=== PATIENT | female | born 1965 | race American Indian/Alaskan Native ===

== ENCOUNTER 2017-02-18 16:20 | Emergency (ER) | payer MEDICAID, OTHER ==
[2017-02-18 16:21] VITALS: BMI 39.9
[2017-02-18 16:45] VITALS: RESP 18; TEMP 99
--- NOTE | 2017-02-18 17:08 | ED PDOC ---
"Arrival/HPI - General Chief Complaint: High Blood Pressure Time Seen by Provider: 02/18/17 16:56 Historian: Patient - History of Present Illness Narrative History of Present Illness (Text): 02/18/17 16:59 51 year old female, pmh including hypertension/hyperlipidemia/diabetes/ mastoiditis, post menopausal, nkda, complaining of elevation of the blood pressure at home and headache x 1 day. Pt. stated that she has been on the current dose of enlapril 20mg po qd and toprol XL 25mg po qd for the past 4 years, poorly controlled Diabetes patient with last hgba1c 11 which she is on oral metformin and insulin as well. Pt. stated that she has frontal headache for the past 2 days, checked the BP which it has been above her usual systolic 130-140s/diastolic doesn't know, here to the ER for evaluation. Pt. has no chest pain or shortness of breath, no palpitation, no numbness or tingling, no slurred speech, no dizziness, no change in vision, no abdominal pain, no nausea or vomiting, no other medical or psychological complaints. Past Medical History - Provider Review Nursing Documentation Reviewed: Yes - Infectious Disease Hx of Infectious Diseases: None - Reproductive Menopause: Yes - Cardiac Hx Cardiac Disorders: Yes Hx Hypertension: Yes - Pulmonary Hx Respiratory Disorders: No - Neurological Hx Neurological Disorder: No - HEENT Hx HEENT Disorder: No - Renal Hx Renal Disorder: No - Endocrine/Metabolic Hx Endocrine Disorders: Yes Hx Diabetes Mellitus Type 2: Yes - Hematological/Oncological Hx Blood Disorders: Yes Hx Anemia: Yes - Integumentary Hx Dermatological Disorder: No - Musculoskeletal/Rheumatological Hx Musculoskeletal Disorders: Yes Other/Comment: Bursitis - Gastrointestinal Hx Gastrointestinal Disorders: Yes Other/Comment: Gallstones. Hernia - Genitourinary/Gynecological Hx Genitourinary Disorders: No Other/Comment: fibroid - Psychiatric Hx Psychophysiologic Disorder: No Hx Substance Use: No - Surgical History Hx Section: Yes Hx Cholecystectomy: Yes Other/Comment: fibroid sx - Anesthesia Hx Anesthesia: Yes Hx Anesthesia Reactions: No Hx Malignant Hyperthermia: No Family/Social History - Physician Review Nursing Documentation Reviewed: Yes Family/Social History: Unknown Family HX Smoking Status: Never Smoked Hx Alcohol Use: No Hx Substance Use: No Allergies/Home Meds Allergies/Adverse Reactions: Allergies No Known Allergies Allergy (Verified 02/18/17 16:39) Home Medications: Home Meds Medication Instructions Recorded Confirmed Aspirin [Aspirin Chewable] 81 mg PO DAILY 08/19/16 02/18/17 Enalapril Maleate [Vasotec] 20 mg PO BID 08/19/16 02/18/17 Metoprolol Succinate [Toprol XL] 25 mg PO DAILY 08/19/16 02/18/17 Simvastatin [Zocor] 20 mg PO DAILY 08/19/16 02/18/17 metFORMIN [glucOPHAGE] 500 mg PO BID 08/19/16 02/18/17 Insulin Lispro Mix 75/25 [HumaLOG 50 unit SC BID 02/18/17 02/18/17 Mix 75/25] Review of Systems - Review of Systems Constitutional: absent: Fatigue, Fevers Eyes: absent: Vision Changes ENT: absent: Hearing Changes Respiratory: absent: Cough, Sputum Cardiovascular: absent: Chest Pain Gastrointestinal: absent: Abdominal Pain, Diarrhea, Nausea, Vomiting Genitourinary Female: absent: Vaginal Bleeding Musculoskeletal: absent: Arthralgias, Back Pain, Neck Pain Skin: absent: Rash, Pruritis, Skin Lesions Neurological: Headache. absent: Dizziness, Focal Weakness, Gait Changes, Speech Changes Physical Exam Vital Signs Reviewed: Yes Vital Signs Temp Pulse Resp BP Pulse Ox 02/18/17 18:53 70 18 150/86 99 02/18/17 18:22 75 18 179/102 H 99 02/18/17 17:45 73 17 209/114 H 98 02/18/17 16:44 99.0 F 77 18 180/100 H 98 Temperature: Afebrile Blood Pressure: Hypertensive Pulse: Regular Respiratory Rate: Normal Appearance: Positive for: Well-Appearing, Non-Toxic, Comfortable Pain Distress: Mild Mental Status: Positive for: Alert and Oriented X 3 - Systems Exam Head: Present: Atraumatic, Normocephalic Pupils: Present: PERRL, Other (there is no papilledema) Extroacular Muscles: Present: EOMI Conjunctiva: Present: Normal Mouth: Present: Moist Mucous Membranes Neck: Present: Normal Range of Motion Respiratory/Chest: Present: Clear to Auscultation, Good Air Exchange. No: Respiratory Distress, Accessory Muscle Use Cardiovascular: Present: Regular Rate and Rhythm, Normal S1, S2. No: Murmurs Abdomen: Present: Normal Bowel Sounds. No: Tenderness, Distention, Peritoneal Signs Back: Present: Normal Inspection Upper Extremity: Present: Normal Inspection. No: Cyanosis, Edema Lower Extremity: Present: Normal Inspection. No: Edema Neurological: Present: GCS=15, Speech Normal, Motor Func Grossly Intact, Gait Normal, Memory Normal, Other (no drift, walking with normal gait and posture. ) Skin: Present: Warm, Dry, Normal Color. No: Rashes Psychiatric: Present: Alert, Oriented x 3, Normal Insight, Normal Concentration Medical Decision Making ED Course and Treatment: 02/18/17 17:20 -labs -CT head -I asked the patient to take her enalapril and metoprolol in the ER again, tylenol ordered.` -Observe and reassess 02/18/17 19:13 -CT head show no acute findings. -Labs are non-significant. -BP improved, no headache, asymptomatic, discussed with the patient that the medication needs to be adjusted. -Discharge home with education on follow up with your own pmd within 2 days, return to the ER for any new or worsening signs or symptoms. - Lab Interpretations Lab Results: 02/18/17 17:15 02/18/17 17:15 Lab Results 02/18/17 17:15: Sodium 140, Potassium 4.7, Chloride 100, Carbon Dioxide 32, Anion Gap 13, BUN 10, Creatinine 0.5, Est GFR ( Amer) > 60, Est GFR (Non- Af Amer) > 60, Random Glucose 200 H, Calcium 10.2, Total Bilirubin 0.6, AST 26, ALT 38, Alkaline Phosphatase 145 H, Total Protein 8.4 H, Albumin 4.4, Globulin 4.0, Albumin/Globulin Ratio 1.1 02/18/17 17:15: WBC 6.7, RBC 4.54, Hgb 13.9, Hct 40.4, MCV 89.0, MCH 30.6, MCHC 34.4, RDW 12.8, Plt Count 365, MPV 10.0, Gran % 52.4, Lymph % (Auto) 38.9 H, Cook % (Auto) 6.6 H, Eos % (Auto) 1.8, Baso % (Auto) 0.3, Gran # 3.50, Lymph # 2.6, Cook # 0.4, Eos # 0.1, Baso # 0.02 I have reviewed the lab results: Yes Interpretation: Abnormal lab values (Glucose 200) - RAD Interpretation Radiology Orders: 02/18/17 17:08 HEAD W/O CONTRAST [CT] Stat FINDINGS: Scattered foci of low attenuation within the periventricular and subcortical white matter are most compatible with chronic microvascular disease. The ventricles and sulci are symmetric without midline shift or mass effect. There is no intracranial hemorrhage, extraaxial collection, or acute transcortical infarction. No lesion of the skull base or calvarium is identified. Mild right ethmoid sinusitis. The remainder of the visualized paranasal sinuses, mastoid air cells, and orbits are normal. IMPRESSION: Mild chronic microvascular changes without acute intracranial finding. Thank you for allowing us to participate in the care of your patient. LETTY LEWISLY | Preliminary Radiology Report Dictated and Authenticated by: Chelsea Aranda MD 02/18/2017 6:13 PM Eastern Time ([place] & [place]) Game Protector: Radiologist - Medication Orders Current Medication Orders: Discontinued Medications Acetaminophen (Tylenol 325mg Tab) 650 mg PO STAT STA Stop: 02/18/17 17:11 Last Admin: 02/18/17 17:50 Dose: 650 mg - PA / MANUFACTURING SR ENGINEER / Resident Statement MD/DO has reviewed & agrees with the documentation as recorded. Disposition/Present on Arrival - Present on Arrival Any Indicators Present on Arrival: No History of DVT/PE: No History of Uncontrolled Diabetes: Yes Urinary Catheter: No History of Decub. Ulcer: No History Surgical Site Infection Following: None - Disposition Have Diagnosis and Disposition been Completed?: Yes Diagnosis: Hypertension Disposition: HOME/ ROUTINE Disposition Time: 19:14 Patient Plan: Discharge Condition: IMPROVED Additional Instructions: Discharge home with education on follow up with your own pmd within 2 days, return to the ER for any new or worsening signs or symptoms. Referrals: [facility] at [facility] [place] [[place]] - Follow up with primary Forms: [id number] (Swazi)"
[2017-02-18 17:55] LABS: ADD MANUAL DIFF? NO
[2017-02-18 18:22] LABS: ALB/GLOB RATIO 1.1 (1.1-1.8); ALKALINE PHOSPHATASE 145 U/L (38-133); ALT/SGPT 38 U/L (7-56); AST/SGOT 26 U/L (15-39); BILIRUBIN,TOTAL 0.6 mg/dL (0.2-1.3); BLOOD UREA NITROGEN 10 mg/dL (7-21); CALCIUM 10.2 mg/dL (8.4-10.5); CARBON DIOXIDE 32 mmol/L (21-33); CHLORIDE 100 mmol/L (98-107); GFR AFRICAN-AMERICAN > 60; GLUCOSE,RANDOM 200 mg/dL (70-110); POTASSIUM 4.7 mmol/L (3.6-5.0); SODIUM 140 mmol/L (132-148); TOTAL PROTEIN 8.4 g/dL (5.8-8.3)
[2017-02-18 18:25] LABS: BASO # 0.02 K/mm3 (0.0-2.0); BASO % 0.3 % (0.0-3.0); EOS # 0.1 (0.0-0.7); EOS % 1.8 % (1.5-5.0); GRAN % 52.4 % (50.0-68.0); HEMATOCRIT 40.4 % (36.0-48.0); LYMPH # 2.6 (1.2-3.4); LYMPH % 38.9 % (22.0-35.0); MEAN CORPUSCULAR HEMOGLOBIN 30.6 pg (25.0-35.0); MEAN CORPUSCULAR HGB CONC 34.4 g/dl (31.0-37.0); MONO # 0.4 (0.1-0.6); MONO % 6.6 % (1.0-6.0); PLATELET COUNT 365 10^3/uL (120.0-450.0); RED CELL DISTRIBUTION WIDTH 12.8 % (11.5-14.5); WHITE BLOOD COUNT 6.7 10^3/ul (4.5-11.0)
[2017-02-18 19:17] VITALS: BP 150/86; PULSE 70; O2SAT 99
--- NOTE | 2017-02-19 08:20 | CT ---
PROCEDURE: CT HEAD WITHOUT CONTRAST. HISTORY: elevated BP, headache COMPARISON: None available. TECHNIQUE: Axial computed tomography images were obtained through the head/brain without intravenous contrast. Radiation dose: Total exam DLP = 725.84 mGy-cm. This CT exam was performed using one or more of the following dose reduction techniques: Automated exposure control, adjustment of the mA and/or kV according to patient size, and/or use of iterative reconstruction technique. FINDINGS: HEMORRHAGE: No intracranial hemorrhage. BRAIN: No mass effect or edema. No CT evidence of acute territorial infarct. Very mild patchy and confluent hypodensities throughout the bilateral cerebral hemispheric white matter are most likely from chronic small vessel ischemic changes. VENTRICLES: Unremarkable. No hydrocephalus. CALVARIUM: Unremarkable. PARANASAL SINUSES: Mucosal thickening involving the ethmoid sinus. MASTOID AIR CELLS: Unremarkable as visualized. No inflammatory changes. OTHER FINDINGS: None. IMPRESSION: No CT evidence of acute intracranial hemorrhage or acute territorial infarct. Acute infarction may be CT occult within first 24 hours. If a focal deficit persists, consider followup CT or MRI for further evaluation. Findings as above. Please note that this report is in general agreement with the preliminary report provided by [employer].
== END 2017-02-18 19:22 | disposition home or self-care (01) ==
LOC: ED 16:20
DX: I10 Essential (primary) hypertension (principal); E78.5 Hyperlipidemia, unspecified; E11.9 Type 2 diabetes mellitus without complications

== ENCOUNTER 2017-10-22 16:44 | Observation (INO) | payer MEDICAID ==
[2017-10-22 17:03] VITALS: BMI 38.0
[2017-10-22] MEDS ORDERED: Sodium Chloride 0.9% 1,000 ML IV STA (17:12)
--- NOTE | 2017-10-22 17:15 | ED PDOC ---
Arrival/HPI - General Chief Complaint: GI Problem Time Seen by Provider: 10/22/17 17:01 Historian: Patient, Family (Niece) - History of Present Illness Time/Duration: Other (Yesterday) Symptom Onset: Gradual Symptom Course: Unchanged Severity Level: Moderate Activities at Onset: Rest Associated Symptoms (Text): 10/22/17 17:13 Patient complains of generalized crampy abdominal pain along with nausea vomiting and diarrhea beginning sometime yesterday. She had a similar episode approximately 2 months ago and had a negative CAT scan at that time. Feverish with some chills. No travel or exposure. No genitourinary symptoms. No cough congestion or URI. No chest pain palpitations or dyspnea. No headache dizziness or lightheadedness. Past Medical History - Infectious Disease Hx of Infectious Diseases: None - Reproductive Menopause: Yes - Cardiac Hx Cardiac Disorders: Yes Hx AL: Yes Hx Hypertension: Yes - Pulmonary Hx Respiratory Disorders: No - Neurological Hx Neurological Disorder: No - HEENT Hx HEENT Disorder: No - Renal Hx Renal Disorder: No - Endocrine/Metabolic Hx Endocrine Disorders: Yes Hx Diabetes Mellitus Type 2: Yes - Hematological/Oncological Hx Blood Disorders: Yes Hx Anemia: Yes - Integumentary Hx Dermatological Disorder: No - Musculoskeletal/Rheumatological Hx Musculoskeletal Disorders: Yes Other/Comment: Bursitis - Gastrointestinal Hx Gastrointestinal Disorders: Yes Other/Comment: Gallstones. Hernia - Genitourinary/Gynecological Hx Genitourinary Disorders: No Other/Comment: fibroid - Psychiatric Hx Psychophysiologic Disorder: No Hx Substance Use: No - Surgical History Hx Section: Yes Hx Cholecystectomy: Yes Other/Comment: fibroid sx - Anesthesia Hx Anesthesia: Yes Hx Anesthesia Reactions: No Hx Malignant Hyperthermia: No Family/Social History - Physician Review Nursing Documentation Reviewed: Yes Family/Social History: Unknown Family HX Smoking Status: Never Smoked Hx Alcohol Use: No Hx Substance Use: No Allergies/Home Meds Allergies/Adverse Reactions: Allergies No Known Allergies Allergy (Verified 10/22/17 17:03) Home Medications: Home Meds Medication Instructions Recorded Confirmed Enalapril Maleate [Vasotec] 20 mg PO BID 08/19/16 10/22/17 Metoprolol Succinate [Toprol XL] 25 mg PO DAILY 08/19/16 10/22/17 Simvastatin [Zocor] 20 mg PO DAILY 08/19/16 10/22/17 metFORMIN [glucOPHAGE] 500 mg PO BID 08/19/16 10/22/17 Insulin Lispro Mix 75/25 [HumaLOG 50 unit SC BID 02/18/17 10/22/17 Mix 75/25] Review of Systems - Physician Review All systems were reviewed & negative as marked: Yes - Review of Systems Constitutional: Fevers Respiratory: absent: SOB, Cough, Sputum, Wheezing Cardiovascular: absent: Chest Pain, Palpitations, Syncope Gastrointestinal: Abdominal Pain, Diarrhea, Nausea, Vomiting, Anorexia. absent : Constipation Genitourinary Female: absent: Dysuria, Frequency, Hematuria Neurological: absent: Headache, Dizziness, Focal Weakness Physical Exam Vital Signs Temp Pulse Resp BP Pulse Ox 10/22/17 16:57 100.7 F H 108 H 18 165/99 H 96 Temperature: Febrile Blood Pressure: Hypertensive Pulse: Tachycardic Respiratory Rate: Normal Appearance: Positive for: Well-Appearing, Non-Toxic, Uncomfortable Pain Distress: None Mental Status: Positive for: Alert and Oriented X 3 - Systems Exam Head: Present: Atraumatic, Normocephalic Pupils: Present: PERRL Extroacular Muscles: Present: EOMI Conjunctiva: Present: Normal Mouth: Present: Moist Mucous Membranes, Other (Poor dentition) Pharnyx: No: ERYTHEMA, EXUDATE, TONSILS ENLARGED Neck: Present: Normal Range of Motion Respiratory/Chest: Present: Clear to Auscultation, Good Air Exchange. No: Respiratory Distress, Accessory Muscle Use Cardiovascular: Present: Regular Rate and Rhythm, Normal S1, S2. No: Murmurs Abdomen: Present: Normal Bowel Sounds, Scars. No: Tenderness, Distention, Peritoneal Signs, Rebound, Guarding Back: Present: Normal Inspection Upper Extremity: Present: Normal Inspection. No: Cyanosis, Edema Lower Extremity: Present: Normal Inspection. No: Edema Neurological: Present: GCS=15, CN II-XII Intact, Speech Normal, Motor Func Grossly Intact Skin: Present: Warm, Dry, Normal Color. No: Rashes Psychiatric: Present: Alert, Oriented x 3, Normal Insight, Normal Concentration Medical Decision Making ED Course and Treatment: 10/22/17 18:53 Dr. Sampson referred to the hospitalist for admission. - Lab Interpretations Lab Results: 10/22/17 17:30 10/22/17 17:30 Lab Results 10/22/17 17:30: Sodium 139, Potassium 4.1, Chloride 100, Carbon Dioxide 27, Anion Gap 17, BUN 11, Creatinine 0.6 L, Est GFR ( Amer) > 60, Est GFR ( Non-Af Amer) > 60, Random Glucose 362 H* D, Calcium 9.6, Total Bilirubin 0.7, AST 30, ALT 45, Alkaline Phosphatase 155 H, Total Protein 8.2, Albumin 4.5, Globulin 3.7, Albumin/Globulin Ratio 1.2, Lipase 31 10/22/17 17:30: Urine Color Yellow, Urine Appearance Sl cloudy, Urine pH 6.0, Ur Specific [place] >= 1.030, Urine Protein 100 H, Urine Glucose (UA) >=1000, Urine Ketones 40 H, Urine Blood Trace-lysed H, Urine Nitrate Negative, Urine Bilirubin Negative, Urine Urobilinogen 0.2, Ur Leukocyte Esterase Negative, Urine RBC 2 - 5, Urine WBC 2 - 5, Ur Epithelial Cells 4 - 5, Urine Bacteria Many , Urine Other Mucus 10/22/17 17:30: WBC 8.5, RBC 4.85, Hgb 14.8, Hct 43.4, MCV 89.5, MCH 30.5, MCHC 34.1, RDW 12.7, Plt Count 327, MPV 10.4, Gran % 91.4 H, Lymph % (Auto) 5.5 L, Door % (Auto) 2.9, Eos % (Auto) 0.1 L, Baso % (Auto) 0.1, Gran # 7.78 H, Lymph # 0.5 L, Door # 0.3, Eos # 0.0, Baso # 0.01, Neutrophils % (Manual) 73 H, Band Neutrophils % 9 H, Lymphocytes % (Manual) 9 L, Monocytes % (Manual) 6, Eosinophils % (Manual) 3, Platelet Evaluation Normal - Medication Orders Current Medication Orders: Sodium Chloride (Sodium Chloride 0.9%) 1,000 mls @ 500 mls/hr IV ONCE ONE Stop: 10/22/17 22:18 Discontinued Medications Famotidine (Pepcid) 20 mg IVP STAT STA Stop: 10/22/17 17:13 Last Admin: 10/22/17 17:40 Dose: 20 mg IVP Administration Document 10/22/17 17:40 SRE (Rec: 10/22/17 17:40 [email or web address] Charges for Administration # of IVP Administrations 1 Sodium Chloride (Sodium Chloride 0.9%) 1,000 mls @ 1,000 mls/hr IV .Q1H STA Stop: 10/22/17 18:11 Last Admin: 10/22/17 17:36 Dose: 1,000 mls/hr eMAR Start Stop Document 10/22/17 17:36 SRE (Rec: 10/22/17 17:40 [email or web address] Intravenous Solution Start Date 10/22/17 Start Time 17:39 End Date 10/22/17 End time 18:40 Total Infusion Time 61 Insulin Human Regular (Humulin R) 20 units SC ONCE STA Stop: 10/22/17 18:10 Last Admin: 10/22/17 18:32 Dose: 20 units MAR Blood Glucose Document 10/22/17 18:32 SRE (Rec: 10/22/17 18:33 [email or web address] Blood Glucose Finger Stick Blood Glucose (70-120) 368 Subcutaneous Administrations Document 10/22/17 18:32 SRE (Rec: 10/22/17 18:33 [email or web address] Injection Site MAR Injection Site Left Arm Charges for Administration # of Subcutaneous Administrations 1 Ketorolac Tromethamine (Toradol) 30 mg IVP STAT STA Stop: 10/22/17 17:13 Last Admin: 10/22/17 17:40 Dose: 30 mg MAR Pain Assessment Document 10/22/17 17:40 SRE (Rec: 10/22/17 17:41 S[email or web address] Pain Reassessment Is this a pain reassessment? Yes Presence of Pain Presence of Pain No IVP Administration Document 10/22/17 17:40 SRE (Rec: 10/22/17 17:41 [email or web address] Charges for Administration # of IVP Administrations 1 Ondansetron HCl (Zofran Inj) 4 mg IVP STAT STA Stop: 10/22/17 17:13 Last Admin: 10/22/17 17:41 Dose: 4 mg IVP Administration Document 10/22/17 17:41 SRE (Rec: 10/22/17 17:41 [email or web address] Charges for Administration # of IVP Administrations 1 Pantoprazole Sodium (Protonix Inj) 40 mg IVP ONCE STA Stop: 01/14/18 20:20 Disposition/Present on Arrival - Present on Arrival Any Indicators Present on Arrival: No History of DVT/PE: No History of Uncontrolled Diabetes: Yes Urinary Catheter: No History of Decub. Ulcer: No History Surgical Site Infection Following: None - Disposition Have Diagnosis and Disposition been Completed?: Yes Diagnosis: Gastroenteritis, Nausea vomiting and diarrhea, Abdominal pain, Hyperglycemia, Fever Disposition: HOSPITALIZED Disposition Time: 20:22 Patient Plan: Observation Condition: FAIR Referrals: Boris Garica MD [Primary Care Provider] - Follow up with primary Forms: [employer] (Ecuadorean)
[2017-10-22 17:53] LABS: URINE BILIRUBIN NEGATIVE (NEGATIVE); URINE BLOOD TRACE-LYSED (NEGATIVE); URINE GLUCOSE (UA) >=1000 mg/dL (NEGATIVE); URINE LEUKOCYTE ESTERASE NEGATIVE Leu/uL (NEGATIVE); URINE NITRATE NEGATIVE (NEGATIVE); URINE PROTEIN 100 mg/dL (<30 mg/dL); URINE UROBILINOGEN 0.2 E.U./dL (<1 E.U./dL)
[2017-10-22 18:06] LABS: ALB/GLOB RATIO 1.2 (1.1-1.8); ALBUMIN 4.5 g/dL (3.0-4.8); ALT/SGPT 45 U/L (7-56); AST/SGOT 30 U/L (14-36); BLOOD UREA NITROGEN 11 mg/dL (7-21); CALCIUM 9.6 mg/dL (8.4-10.5); GFR AFRICAN-AMERICAN > 60; GFR NON-AFRICAN AMERICAN > 60; LIPASE 31 U/L (23-300)
[2017-10-22] MEDS ORDERED: Insulin Regular 1 UNITS/0.01 ML ML SC STA (18:09)
[2017-10-22 18:14] LABS: URINE APPEARANCE SL CLOUDY (CLEAR); URINE COLOR YELLOW (YELLOW)
[2017-10-22 18:15] LABS: BASO % 0.1 % (0.0-3.0); EOS % 0.1 % (1.5-5.0); GRAN % 91.4 % (50.0-68.0); HEMOGLOBIN 14.8 g/dL (12.0-16.0); LYMPH % 5.5 % (22.0-35.0); MEAN CELL VOLUME 89.5 fl (80.0-105.0); MEAN CORPUSCULAR HEMOGLOBIN 30.5 pg (25.0-35.0); MEAN CORPUSCULAR HGB CONC 34.1 g/dl (31.0-37.0); MEAN PLATELET VOLUME 10.4 fl (7.0-11.0); MONO % 2.9 % (1.0-6.0); PLATELET COUNT 327 10^3/uL (120.0-450.0); RBC 4.85 10^6/uL (3.5-6.1); RED CELL DISTRIBUTION WIDTH 12.7 % (11.5-14.5); WHITE BLOOD COUNT 8.5 10^3/ul (4.5-11.0)
[2017-10-22 18:16] LABS: BASO # 0.01 K/mm3 (0.0-2.0); GRAN # 7.78 (1.4-6.5); LYMPH # 0.5 (1.2-3.4); MONO # 0.3 (0.1-0.6)
[2017-10-22 18:20] LABS: URINE BACTERIA MANY (NEG)
[2017-10-22 20:12] LABS: BAND 9 % (0-2); EOSINOPHIL 3 % (0.0-3.0); LYMPHOCYTE 9 % (22.0-35.0); MONOCYTE 6 % (1.0-6.0); NEUTROPHIL 73 % (50.0-70.0); PLATELET ESTIMATE NORMAL (NORMAL)
[2017-10-22] MEDS ORDERED: Sodium Chloride 0.9% 1,000 ML IV ONE (20:19)
--- NOTE | 2017-10-22 20:39 | CP.PCM.HP ---
<Bobby Higgins - Last Filed: 10/22/17 21:08> History of Present Illness - History of Present Illness History of Present Illness: CC: abd pain and nausea/vomiting Subjective: HPI: Patient is a 52 year old female with past medical history of DM, htn, hpl, and uterine fibroids who presents the ED for evaluation and treatment of abdominal pain which began yesterday evening without a specific provoking event. The pain is localized to the epigastrium and is characterized as being sharp in nature. Associated with nausea and 7 bouts of nonbloody nonbilious vomitting. Similar symptoms occurred 2 months ago with resolution without acute intervention. Denies recent travel and sick contacts. States her blood glucose is elevated because she ate marshmallows yesterday and began to fill sick causing her to miss her night time dose of insulin. Admits to subjective fevers and chills which have improved since onset. Patient denies intractable headache, fever, dizziness, blurry vision, ringing in the ears, chest pain, shortness of breath, diarrhea, constipation, and urinary symptoms. ROS: 12 point review of systems negative except as indicated in HPI PMHx: DM, htn, hpl, and uterine fibroids PSHx: umbilical hernia and inguinal hernia repair, 11 uterine fibroid removed ( 2 separate surgeries), 2 C-sections, Family Hx: father- dm, mother- htn Social Hx: denies ETOH use, tobacco use, illicit drug use Medications: Please see medication reconciliation PMD: Dr. Boris Styles Pharmacy: [facility] Physical Examination: - Constitutional Appears: Non-toxic, No Acute Distress - Head Exam Head Exam: atraumatic, normocephalic - Eye Exam Eye Exam: Normal appearance, PERRL. absent: Scleral icterus - ENT Exam ENT Exam: Mucous Membranes Moist - Neck Exam Neck exam: Normal Inspection - Respiratory Exam Respiratory Exam: Normal Breathing Pattern - Cardiovascular Exam Cardiovascular Exam: +S1, +S2. absent: Gallop, JVD - GI/Abdominal Exam GI & Abdominal Exam: Tender to palpation in the epigastrum, Normal Bowel Sounds , absent: Distended, Guarding, Pulsatile Mass, Rebound, Rigid - Extremities Exam Extremities exam: Negative for: calf tenderness - Neurological Exam Neurological exam: Patient is awake, alert, responds to verbal stimuli, answers questions appropriately, follows commands, and moves extremities past midline - Psychiatric Exam Psychiatric exam: Normal Affect, Normal Mood - Skin Skin Exam: warm and dry Assessment and Plan: Patient is a 52 year old female with past medical history of DM, htn, hpl, and uterine fibroids who was admitted for evaluation and treatment of abdominal pain with associated N/V. Abdominal Pain; N/V - CT from 08/16/18 reviewed- No evidence of significant acute process. No definite cause for pain identified. Incidental adrenal lesion. Multiple fat containing ventral hernias. Colonic diverticulosis. Uterine fibroids. - likely viral gastritis vs DKA vs PUD vs GERD - NPO - IVF NS @ 75; patient given 2 liters NS in ED - protonix - zofran Hyperglycemia; Hx of Diabetes - elevated blood glucose noted- given 20 units of humulin in ED - continue home diabetic medications- humalog - hold home metformin - fingersticks ACHS - insulin sliding scale- lispro high - NPO now will advance diet slowly, resume diet as carb consistent when ready - abg not completed in ED, ordered and pending, UA reviewed- positive for protein, glucose, and ketone SIRS Criteria Met - Fever + tachycardic (likely secondary to dehydration) - no infectious etiology noted - continue IVF @ 75 - monitor vitals closely Hx of Htn - c/w home vasotec and metoprolol with holding parameters - hydralazine 5mg IV q6 prn SBP > 180, holding parameters- do not administer if HR is > 100 bpm Hx of Hyperlipidemia - c/w statin - lipid profile pending Hx of Uterine Fibroids - states she has 2 uterine fibroids at the moment, 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 10/22/17 20:22 Past Patient History - Infectious Disease Hx of Infectious Diseases: None - Past Social History Smoking Status: Never Smoked - CARDIAC Hx Cardiac Disorders: Yes Hx Heart Attack: Yes Hx Hypertension: Yes - PULMONARY Hx Respiratory Disorders: No - NEUROLOGICAL Hx Neurological Disorder: No - HEENT Hx HEENT Problems: No - RENAL Hx Chronic Kidney Disease: No - ENDOCRINE/METABOLIC Hx Endocrine Disorders: Yes Hx Diabetes Mellitus Type 2: Yes - HEMATOLOGICAL/ONCOLOGICAL Hx Blood Disorders: Yes Hx Anemia: Yes - INTEGUMENTARY Hx Dermatological Problems: No - MUSCULOSKELETAL/RHEUMATOLOGICAL Hx Musculoskeletal Disorders: Yes Other/Comment: Bursitis - GASTROINTESTINAL Hx Gastrointestinal Disorders: Yes Other/Comment: Gallstones. Hernia - GENITOURINARY/GYNECOLOGICAL Hx Genitourinary Disorders: No Other/Comment: fibroid - PSYCHIATRIC Hx Psychophysiologic Disorder: No Hx Substance Use: No - SURGICAL HISTORY Hx Section: Yes Hx Cholecystectomy: Yes Other/Comment: fibroid sx - ANESTHESIA Hx Anesthesia: Yes Hx Anesthesia Reactions: No Hx Malignant Hyperthermia: No Meds Allergies/Adverse Reactions: Allergies Allergy/AdvReac Type Severity Reaction Status Date / Time No Known Allergies Allergy Verified 10/22/17 17:03 Results - Vital Signs Recent Vital Signs: Last Vital Signs Temp 100.7 F H 10/22/17 16:57 Pulse 108 H 10/22/17 16:57 Resp 18 10/22/17 16:57 BP 165/99 H 10/22/17 16:57 Pulse Ox 96 10/22/17 16:57 - Labs Result Diagrams: 10/22/17 17:30 10/22/17 17:30 Labs: Laboratory Results - last 24 hr 10/22/17 10/22/17 10/22/17 17:30 17:30 17:30 WBC 8.5 RBC 4.85 Hgb 14.8 Hct 43.4 MCV 89.5 MCH 30.5 MCHC 34.1 RDW 12.7 Plt Count 327 MPV 10.4 Gran % 91.4 H Lymph % (Auto) 5.5 L [place] % (Auto) 2.9 Eos % (Auto) 0.1 L Baso % (Auto) 0.1 Gran # 7.78 H Lymph # 0.5 L [place] # 0.3 Eos # 0.0 Baso # 0.01 Neutrophils % (Manual) 73 H Band Neutrophils % 9 H Lymphocytes % (Manual) 9 L Monocytes % (Manual) 6 Eosinophils % (Manual) 3 Platelet Evaluation Normal Sodium 139 Potassium 4.1 Chloride 100 Carbon Dioxide 27 Anion Gap 17 BUN 11 Creatinine 0.6 L Est GFR ( Amer) > 60 Est GFR (Non-Af Amer) > 60 Random Glucose 362 H* D Calcium 9.6 Total Bilirubin 0.7 AST 30 ALT 45 Alkaline Phosphatase 155 H Total Protein 8.2 Albumin 4.5 Globulin 3.7 Albumin/Globulin Ratio 1.2 Lipase 31 Urine Color Yellow Urine Appearance Sl cloudy Urine pH 6.0 Ur Specific [place] >= 1.030 Urine Protein 100 H Urine Glucose (UA) >=1000 Urine Ketones 40 H Urine Blood Trace-lysed H Urine Nitrate Negative Urine Bilirubin Negative Urine Urobilinogen 0.2 Ur Leukocyte Esterase Negative Urine RBC 2 - 5 Urine WBC 2 - 5 Ur Epithelial Cells 4 - 5 Urine Bacteria Many Urine Other Mucus <Robledo,Esteban - Last Filed: 10/22/17 22:19> Present on Admission - Present on Admission Any Indicators Present on Admission: No History of DVT/PE: No History of Uncontrolled Diabetes: No Urinary Catheter: No Decubitus Ulcer Present: No Results - Vital Signs Recent Vital Signs: Last Vital Signs Temp 100.7 F H 10/22/17 16:57 Pulse 102 H 10/22/17 20:48 Resp 18 10/22/17 20:48 BP 137/85 10/22/17 20:48 Pulse Ox 97 10/22/17 20:48 - Labs Result Diagrams: 10/22/17 17:30 10/22/17 17:30 Attending/Attestation - Attestation I have personally seen and examined this patient.: Yes I have fully participated in the care of the patient.: Yes I have reviewed all pertinent clinical information: Yes Notes (Text): 10/22/17 22:14 Patient was seen when she was in room # 11 in the ER. Agree with history, physical examination, assessment and plan. Gives history of Obstructive sleep apnea.
[2017-10-22 22:07] LABS: HDL CHOLESTEROL 52 mg/dL (29-60); LDL CHOLESTEROL 183 mg/dL (0-129)
[2017-10-22] MEDS: Insulin Lispro (HUMAlog) HIGH Coverage SC SCH (22:43)
[2017-10-22] MEDS: Sodium Chloride 0.9% 1,000 ML IV SCH (23:02)
[2017-10-23 05:58] LABS: BASO # 0.01 K/mm3 (0.0-2.0); BASO % 0.2 % (0.0-3.0); EOS % 0.2 % (1.5-5.0); GRAN % 72.2 % (50.0-68.0); LYMPH # 1.2 (1.2-3.4); LYMPH % 21.1 % (22.0-35.0); MEAN CELL VOLUME 91.4 fl (80.0-105.0); MEAN CORPUSCULAR HEMOGLOBIN 30.1 pg (25.0-35.0); MEAN PLATELET VOLUME 10.6 fl (7.0-11.0); MONO # 0.4 (0.1-0.6); MONO % 6.3 % (1.0-6.0); RBC 4.08 10^6/uL (3.5-6.1); RED CELL DISTRIBUTION WIDTH 12.8 % (11.5-14.5); WHITE BLOOD COUNT 5.5 10^3/ul (4.5-11.0)
[2017-10-23 06:20] LABS: HEMOGLOBIN 12.3 g/dL (12.0-16.0)
[2017-10-23 06:42] LABS: ALB/GLOB RATIO 1.1 (1.1-1.8); ALBUMIN 3.6 g/dL (3.0-4.8); ALT/SGPT 35 U/L (7-56); AST/SGOT 20 U/L (14-36); BLOOD UREA NITROGEN 14 mg/dL (7-21); CALCIUM 8.6 mg/dL (8.4-10.5); GFR AFRICAN-AMERICAN > 60; GFR NON-AFRICAN AMERICAN > 60
[2017-10-23] MEDS: Insulin Lispro (HUMAlog) HIGH Coverage SC SCH ×4 (07:54→22:05)
[2017-10-23] MEDS ORDERED: Metoprolol Succinate 25 mg XL Tab PO SCH (10:00)
[2017-10-23 10:12] LABS: FREE T4 0.92 ng/dL (0.78-2.19)
[2017-10-23] MEDS: Insulin Lispro (humaLOG) MIX 75/25(10 ml) SC SCH ×2 (10:26→17:38)
[2017-10-23] MEDS: Metoprolol Succinate 25 mg XL Tab PO SCH (10:28)
[2017-10-23] MEDS ORDERED: Pneumococcal 23-Valent Vaccine IM ONE (12:32)
[2017-10-23] MEDS ORDERED: Influenza Vaccine 60 mcg/0.5 mL SYR (4YR UP) IM ONE (12:32)
[2017-10-23] MEDS: Sodium Chloride 0.9% 1,000 ML IV SCH (13:27)
--- NOTE | 2017-10-23 13:36 | CP.PCM.PN ---
<Olivia Poole - Last Filed: 10/24/17 16:09> Subjective - Date & Time of Evaluation Date of Evaluation: 10/23/17 Time of Evaluation: 13:36 - Subjective Subjective: Olivia Poole, PGY1, Medicine Progress Note for Dr Sims: Patient seen and examined at bedside. Reports mild epigastric pain, improved since admission. Denies nausea, vomiting, fever, chills, leg swelling, urinary symptoms, diaphoresis, dizziness, lightheadedness. Objective - Vital Signs/Intake and Output Vital Signs (last 24 hours): Temp Pulse Resp BP Pulse Ox 98.1 F 76 18 167/86 H 98 10/23/17 12:17 10/23/17 13:28 10/23/17 12:17 10/23/17 13:28 10/23/17 08:13 - Medications Medications: Current Medications Atorvastatin Calcium (Lipitor) 10 mg PO DIN JASON Famotidine (Pepcid) 40 mg PO HS [facility] Hydralazine HCl (Apresoline) 10 mg IVP Q6 PRN PRN Reason: Systolic Blood Pressure Sodium Chloride (Sodium Chloride 0.9%) 1,000 mls @ 75 mls/hr IV .[id number] [facility] Last Admin: 10/23/17 13:27 Dose: 75 mls/hr Insulin Human Lispro (Humalog High) 0 units SC ACHS [facility] PRN Reason: Protocol Last Admin: 10/23/17 13:26 Dose: 1 units Insulin Lispro Protam/Lispro Human (Humalog Mix 75/25) 50 units SC BID [facility] Last Admin: 10/23/17 13:26 Dose: 50 units Lisinopril (Zestril) 20 mg PO BID [facility] Metoprolol Succinate (Toprol Xl) 25 mg PO DAILY [facility] Last Admin: 10/23/17 13:28 Dose: 25 mg Ondansetron HCl (Zofran Inj) 4 mg IVP Q6H PRN PRN Reason: Nausea/Vomiting Last Admin: 10/22/17 23:03 Dose: 4 mg - Labs Labs: 10/23/17 05:30 10/23/17 05:30 - Constitutional Appears: Non-toxic, No Acute Distress - Head Exam Head Exam: ATRAUMATIC, NORMOCEPHALIC - Eye Exam Eye Exam: EOMI, PERRL. absent: Conjunctival injection, Nystagmus, Scleral icterus Pupil Exam: NORMAL ACCOMODATION, PERRL - ENT Exam ENT Exam: Mucous Membranes Moist - Neck Exam Neck Exam: Full ROM - Respiratory Exam Respiratory Exam: Clear to Ausculation Bilateral. absent: Chest Wall Tenderness , Decreased Breath Sounds, Rhonchi, Wheezes, Respiratory Distress, Stridor - Cardiovascular Exam Cardiovascular Exam: RRR, +S1, +S2. absent: Murmur - GI/Abdominal Exam GI & Abdominal Exam: Soft, Tenderness (mild ttp in epigastric area), Normal Bowel Sounds. absent: Distended, Firm, Organomegaly, Rebound - Extremities Exam Extremities Exam: Normal Inspection. absent: Calf Tenderness, Pedal Edema - Back Exam Back Exam: NORMAL INSPECTION. absent: CVA tenderness (L), CVA tenderness (R) - Neurological Exam Neurological Exam: Alert, Awake, Oriented x3 - Psychiatric Exam Psychiatric exam: Normal Affect, Normal Mood - Skin Skin Exam: Dry, Normal Color, Warm Assessment and Plan - Assessment and Plan (Free Text) Assessment: 52 year old female with past medical history of DM, htn, hpl, and uterine fibroids, admitted for gastroenteritis, gastritis/GERD and hyperglycemia: Viral Gastroenteritis - CT from 08/16/18 reviewed- No evidence of significant acute process. No definite cause for pain identified. Incidental adrenal lesion. Multiple fat containing ventral hernias. Colonic diverticulosis. Uterine fibroids. - Advance diet as tolerated - IVF NS @ 75; patient given 2 liters NS in ED - protonix - zofran Hyperglycemia; Hx of Diabetes - elevated blood glucose noted- given 20 units of humulin in ED - continue home diabetic medications- humalog - hold home metformin - fingersticks ACHS - insulin sliding scale- lispro high - Tolerating CLD. Advance as tolerated. - UA reviewed- positive for protein, glucose, and ketone Hx of Htn - c/w home vasotec and metoprolol with holding parameters - cont to monitor. consider adding another anti-HTN if remains high BP. Hx of Hyperlipidemia - c/w statin Hx of Uterine Fibroids - states she has 2 uterine fibroids at the moment, denies nurse gynecology symptoms - no acute intervention - follow up with outpatient circular stuffer Prophylaxis - DVT ppx- scds - GI ppx- famotidine Patient case discussed with and plan approved by Dr Sims. Olivia Poole, PGY1 <Jose Sims - Last Filed: 10/24/17 16:24> Objective - Vital Signs/Intake and Output Vital Signs (last 24 hours): Temp Pulse Resp BP Pulse Ox 98 F 60 18 160/96 H 98 10/24/17 06:00 10/24/17 06:00 10/24/17 06:00 10/24/17 10:04 10/24/17 06:00 Intake and Output: 10/24/17 10/24/17 06:59 18:59 Intake Total 240 Balance 240 - Labs Labs: 10/24/17 07:00 10/24/17 07:00 Attending/Attestation - Attestation I have personally seen and examined this patient.: Yes I have fully participated in the care of the patient.: Yes I have reviewed all pertinent clinical information, including history, physical exam and plan: Yes Notes (Text): 10/23/17 52 year old female with past medical history of hypertension and diabetes who presented with abdominal pain and nausea/vomiting, likely secondary to gastroenteritis vs gastritis. CT abd/pelvis is negative for acute findings. Continue with protonix and zofran prn. Her symptoms are improving. Will advance diet as tolerated. Continue with insulin ss and humalog for diabetes. Continue with home medications for hypertension. D/c planning if patient is tolerating diet. Jose Sims MD Hospitalist.
--- NOTE | 2017-10-23 16:06 | CP.PCM.DIS ---
Provider - Provider Date of Admission: 10/22/17 20:20 Attending physician: Jose Sims MD Primary care physician: Boris Garcia MD Time Spent in preparation of Discharge (in minutes): 35 Diagnosis - Discharge Diagnosis (1) Gastritis Status: Acute Hospital Course - Lab Results Lab Results: Most Recent Lab Values WBC 5.5 10^3/ul (4.5-11.0) D 10/23/17 05:30 RBC 4.08 10^6/uL (3.5-6.1) 10/23/17 05:30 Hgb 12.3 g/dL (12.0-16.0) D 10/23/17 05:30 Hct 37.3 % (36.0-48.0) 10/23/17 05:30 MCV 91.4 fl (80.0-105.0) 10/23/17 05:30 MCH 30.1 pg (25.0-35.0) 10/23/17 05:30 MCHC 33.0 g/dl (31.0-37.0) 10/23/17 05:30 RDW 12.8 % (11.5-14.5) 10/23/17 05:30 Plt Count 283 10^3/uL (120.0-450.0) 10/23/17 05:30 MPV 10.6 fl (7.0-11.0) 10/23/17 05:30 Gran % 72.2 % (50.0-68.0) H 10/23/17 05:30 Lymph % (Auto) 21.1 % (22.0-35.0) L 10/23/17 05:30 [place] % (Auto) 6.3 % (1.0-6.0) H 10/23/17 05:30 Eos % (Auto) 0.2 % (1.5-5.0) L 10/23/17 05:30 Baso % (Auto) 0.2 % (0.0-3.0) 10/23/17 05:30 Gran # 4.00 (1.4-6.5) 10/23/17 05:30 Lymph # 1.2 (1.2-3.4) 10/23/17 05:30 [place] # 0.4 (0.1-0.6) 10/23/17 05:30 Eos # 0.0 (0.0-0.7) 10/23/17 05:30 Baso # 0.01 K/mm3 (0.0-2.0) 10/23/17 05:30 Neutrophils % (Manual) 73 % (50.0-70.0) H 10/22/17 17:30 Band Neutrophils % 9 % (0-2) H 10/22/17 17:30 Lymphocytes % (Manual) 9 % (22.0-35.0) L 10/22/17 17:30 Monocytes % (Manual) 6 % (1.0-6.0) 10/22/17 17:30 Eosinophils % (Manual) 3 % (0.0-3.0) 10/22/17 17:30 Platelet Evaluation Normal (NORMAL) 10/22/17 17:30 Sodium 142 mmol/L (132-148) 10/23/17 05:30 Potassium 3.9 mmol/L (3.6-5.0) 10/23/17 05:30 Chloride 106 mmol/L (98-107) 10/23/17 05:30 Carbon Dioxide 24 mmol/L (21-33) 10/23/17 05:30 Anion Gap 15 (10-20) 10/23/17 05:30 BUN 14 mg/dL (7-21) 10/23/17 05:30 Creatinine 0.7 mg/dl (0.7-1.2) 10/23/17 05:30 Est GFR ( Amer) > 60 10/23/17 05:30 Est GFR (Non-Af Amer) > 60 10/23/17 05:30 POC Glucose (mg/dL) 196 mg/dL (65-110) H 10/23/17 12:20 Random Glucose 238 mg/dL (70-110) H 10/23/17 05:30 Hemoglobin A1c 11.8 % (4.2-6.5) H 10/22/17 17:30 Calcium 8.6 mg/dL (8.4-10.5) 10/23/17 05:30 Total Bilirubin 0.6 mg/dL (0.2-1.3) 10/23/17 05:30 AST 20 U/L (14-36) 10/23/17 05:30 ALT 35 U/L (7-56) 10/23/17 05:30 Alkaline Phosphatase 114 U/L (38-126) 10/23/17 05:30 Total Protein 6.9 g/dL (5.8-8.3) 10/23/17 05:30 Albumin 3.6 g/dL (3.0-4.8) 10/23/17 05:30 Globulin 3.3 gm/dL 10/23/17 05:30 Albumin/Globulin Ratio 1.1 (1.1-1.8) 10/23/17 05:30 Triglycerides 175 mg/dL (35-160) H 10/22/17 17:30 Cholesterol 270 mg/dL (130-200) H 10/22/17 17:30 LDL Cholesterol Direct 183 mg/dL (0-129) H 10/22/17 17:30 HDL Cholesterol 52 mg/dL (29-60) 10/22/17 17:30 Lipase 31 U/L (23-300) 10/22/17 17:30 Free T4 0.92 ng/dL (0.78-2.19) 10/23/17 09:30 TSH 3rd Generation 0.13 mIU/mL (0.46-4.68) L 10/23/17 09:30 Urine Color Yellow (YELLOW) 10/22/17 17:30 Urine Appearance Sl cloudy (CLEAR) 10/22/17 17:30 Urine pH 6.0 (4.7-8.0) 10/22/17 17:30 Ur Specific [place] >= 1.030 (1.005-1.035) 10/22/17 17:30 Urine Protein 100 mg/dL (<30 mg/dL) H 10/22/17 17:30 Urine Glucose (UA) >=1000 mg/dL (NEGATIVE) 10/22/17 17:30 Urine Ketones 40 mg/dL (NEGATIVE) H 10/22/17 17:30 Urine Blood Trace-lysed (NEGATIVE) H 10/22/17 17:30 Urine Nitrate Negative (NEGATIVE) 10/22/17 17:30 Urine Bilirubin Negative (NEGATIVE) 10/22/17 17:30 Urine Urobilinogen 0.2 E.U./dL (<1 E.U./dL) 10/22/17 17:30 Ur Leukocyte Esterase Negative Abhya/uL (NEGATIVE) 10/22/17 17:30 Urine RBC 2 - 5 /hpf (0-2) 10/22/17 17:30 Urine WBC 2 - 5 /hpf (0-6) 10/22/17 17:30 Ur Epithelial Cells 4 - 5 /hpf (0-5) 10/22/17 17:30 Urine Bacteria Many (NEG) 10/22/17 17:30 Urine Other Mucus 10/22/17 17:30 - Hospital Course Hospital Course: 52 year old female with past medical history of DM, htn, hpl, MELVA, and uterine fibroids who presents the ED for evaluation and treatment of abdominal pain which began yesterday evening without a specific provoking event. The pain is localized to the epigastrium and is characterized as being sharp in nature. Associated with nausea and 7 bouts of nonbloody nonbilious vomitting. Similar symptoms occurred 2 months ago with resolution without acute intervention. Denies recent travel and sick contacts. States her blood glucose is elevated because she ate marshmallows yesterday and began to fill sick causing her to miss her night time dose of insulin. Admits to subjective fevers and chills which have improved since onset. Patient denies intractable headache, fever, dizziness, blurry vision, ringing in the ears, chest pain, shortness of breath, diarrhea, constipation, and urinary symptoms. Pt found to have elevated blood sugar 363 on admission, given regular insulin in ED, along with Pepcid, zofran, protonix, 2L NS bolus. Pt then had relief of her nausea, vomiting and epigastric pain. Tolerating diet well. Discussed with patient to stay hydrated, and avoid foods with high glycemic index. Pt to follow up with PMD in 1 week. Discharge Exam - Head Exam Head Exam: ATRAUMATIC, NORMOCEPHALIC - Eye Exam Eye Exam: EOMI, PERRL Pupil Exam: PERRL - ENT Exam ENT Exam: Mucous Membranes Moist - Neck Exam Neck exam: Full Rom - Respiratory Exam Respiratory Exam: Clear to PA & Lateral. absent: Chest Wall Tenderness, Respiratory Distress - Cardiovascular Exam Cardiovascular Exam: RRR, +S1, +S2. absent: Systolic Murmur - GI/Abdominal Exam GI & Abdominal Exam: Normal Bowel Sounds, Soft. absent: Distended, Guarding, Organomegaly, Tenderness - Extremities Exam Extremities exam: normal inspection - Neurological Exam Neurological exam: Alert, Oriented x3 - Psychiatric Exam Psychiatric exam: Normal Affect, Normal Mood - Skin Skin Exam: Dry, Normal Color, Warm Discharge Plan - Follow Up Plan Condition: FAIR Disposition: HOME/ ROUTINE Patient education suggested?: Yes Instructions: Gastritis (GEN), Gastroenteritis (DC), Acute Abdominal Pain (GEN) , Diabetic Hyperglycemia (DC) Additional Instructions: - Please take OTC Prilosec for heartburn. - Follow up with PMD in 1 week. - Avoid high glycemic index foods. Keep a log diary of blood sugar measurements for 5 days, before each meal, and show it to PMD upon next visit. - If symptoms worsen or any concerns, return to the ED. Referrals: Boris Garcia MD [Primary Care Provider] -
[2017-10-23 23:58] VITALS: RESP 18
[2017-10-24 06:24] VITALS: BP 160/96; PULSE 60; TEMP 98; O2SAT 98
[2017-10-24 07:49] LABS: BASO # 0.01 K/mm3 (0.0-2.0); BASO % 0.2 % (0.0-3.0); EOS # 0.1 (0.0-0.7); EOS % 1.7 % (1.5-5.0); GRAN # 2.24 (1.4-6.5); GRAN % 46.8 % (50.0-68.0); HEMOGLOBIN 12.1 g/dL (12.0-16.0); LYMPH # 1.9 (1.2-3.4); LYMPH % 39.2 % (22.0-35.0); MEAN CELL VOLUME 92.1 fl (80.0-105.0); MEAN CORPUSCULAR HGB CONC 32.6 g/dl (31.0-37.0); MEAN PLATELET VOLUME 9.7 fl (7.0-11.0); MONO # 0.6 (0.1-0.6); MONO % 12.1 % (1.0-6.0); RBC 4.03 10^6/uL (3.5-6.1); RED CELL DISTRIBUTION WIDTH 13.1 % (11.5-14.5); WHITE BLOOD COUNT 4.8 10^3/ul (4.5-11.0)
[2017-10-24] MEDS: Insulin Lispro (HUMAlog) HIGH Coverage SC SCH (08:10)
[2017-10-24 08:55] LABS: ALB/GLOB RATIO 1.1 (1.1-1.8); ALBUMIN 3.5 g/dL (3.0-4.8); ALT/SGPT 43 U/L (7-56); AST/SGOT 29 U/L (14-36); BLOOD UREA NITROGEN 10 mg/dL (7-21); CALCIUM 9.1 mg/dL (8.4-10.5); GFR AFRICAN-AMERICAN > 60; GFR NON-AFRICAN AMERICAN > 60
[2017-10-24] MEDS: Metoprolol Succinate 25 mg XL Tab PO SCH (10:04)
[2017-10-24] MEDS: Insulin Lispro (humaLOG) MIX 75/25(10 ml) SC SCH (10:44)
--- NOTE | 2017-10-24 16:07 | CP.PCM.DIS ---
<Olivia Poole - Last Filed: 10/24/17 16:03> Provider - Provider Date of Admission: 10/22/17 20:20 Attending physician: Jose Sims MD Primary care physician: Boris Garcia MD Time Spent in preparation of Discharge (in minutes): 35 Diagnosis - Discharge Diagnosis (1) Gastritis Status: Acute (2) Hyperglycemia Status: Acute (3) Gastroenteritis Status: Acute Hospital Course - Lab Results Lab Results: Most Recent Lab Values WBC 4.8 10^3/ul (4.5-11.0) 10/24/17 07:00 RBC 4.03 10^6/uL (3.5-6.1) 10/24/17 07:00 Hgb 12.1 g/dL (12.0-16.0) 10/24/17 07:00 Hct 37.1 % (36.0-48.0) 10/24/17 07:00 MCV 92.1 fl (80.0-105.0) 10/24/17 07:00 MCH 30.0 pg (25.0-35.0) 10/24/17 07:00 MCHC 32.6 g/dl (31.0-37.0) 10/24/17 07:00 RDW 13.1 % (11.5-14.5) 10/24/17 07:00 Plt Count 287 10^3/uL (120.0-450.0) 10/24/17 07:00 MPV 9.7 fl (7.0-11.0) 10/24/17 07:00 Gran % 46.8 % (50.0-68.0) L 10/24/17 07:00 Lymph % (Auto) 39.2 % (22.0-35.0) H 10/24/17 07:00 Hartley % (Auto) 12.1 % (1.0-6.0) H 10/24/17 07:00 Eos % (Auto) 1.7 % (1.5-5.0) 10/24/17 07:00 Baso % (Auto) 0.2 % (0.0-3.0) 10/24/17 07:00 Gran # 2.24 (1.4-6.5) 10/24/17 07:00 Lymph # 1.9 (1.2-3.4) 10/24/17 07:00 Hartley # 0.6 (0.1-0.6) 10/24/17 07:00 Eos # 0.1 (0.0-0.7) 10/24/17 07:00 Baso # 0.01 K/mm3 (0.0-2.0) 10/24/17 07:00 Neutrophils % (Manual) 73 % (50.0-70.0) H 10/22/17 17:30 Band Neutrophils % 9 % (0-2) H 10/22/17 17:30 Lymphocytes % (Manual) 9 % (22.0-35.0) L 10/22/17 17:30 Monocytes % (Manual) 6 % (1.0-6.0) 10/22/17 17:30 Eosinophils % (Manual) 3 % (0.0-3.0) 10/22/17 17:30 Platelet Evaluation Normal (NORMAL) 10/22/17 17:30 Sodium 142 mmol/L (132-148) 10/24/17 07:00 Potassium 4.3 mmol/L (3.6-5.0) 10/24/17 07:00 Chloride 107 mmol/L (98-107) 10/24/17 07:00 Carbon Dioxide 27 mmol/L (21-33) 10/24/17 07:00 Anion Gap 13 (10-20) 10/24/17 07:00 BUN 10 mg/dL (7-21) 10/24/17 07:00 Creatinine 0.6 mg/dl (0.7-1.2) L 10/24/17 07:00 Est GFR ( Amer) > 60 10/24/17 07:00 Est GFR (Non-Af Amer) > 60 10/24/17 07:00 POC Glucose (mg/dL) 147 mg/dL (65-110) H 10/24/17 11:39 Random Glucose 119 mg/dL (70-110) H 10/24/17 07:00 Hemoglobin A1c 11.8 % (4.2-6.5) H 10/22/17 17:30 Calcium 9.1 mg/dL (8.4-10.5) 10/24/17 07:00 Total Bilirubin 0.3 mg/dL (0.2-1.3) 10/24/17 07:00 AST 29 U/L (14-36) 10/24/17 07:00 ALT 43 U/L (7-56) 10/24/17 07:00 Alkaline Phosphatase 111 U/L (38-126) 10/24/17 07:00 Total Protein 6.8 g/dL (5.8-8.3) 10/24/17 07:00 Albumin 3.5 g/dL (3.0-4.8) 10/24/17 07:00 Globulin 3.3 gm/dL 10/24/17 07:00 Albumin/Globulin Ratio 1.1 (1.1-1.8) 10/24/17 07:00 Triglycerides 175 mg/dL (35-160) H 10/22/17 17:30 Cholesterol 270 mg/dL (130-200) H 10/22/17 17:30 LDL Cholesterol Direct 183 mg/dL (0-129) H 10/22/17 17:30 HDL Cholesterol 52 mg/dL (29-60) 10/22/17 17:30 Lipase 31 U/L (23-300) 10/22/17 17:30 Free T4 0.92 ng/dL (0.78-2.19) 10/23/17 09:30 TSH 3rd Generation 0.13 mIU/mL (0.46-4.68) L 10/23/17 09:30 Urine Color Yellow (YELLOW) 10/22/17 17:30 Urine Appearance Sl cloudy (CLEAR) 10/22/17 17:30 Urine pH 6.0 (4.7-8.0) 10/22/17 17:30 Ur Specific [place] >= 1.030 (1.005-1.035) 10/22/17 17:30 Urine Protein 100 mg/dL (<30 mg/dL) H 10/22/17 17:30 Urine Glucose (UA) >=1000 mg/dL (NEGATIVE) 10/22/17 17:30 Urine Ketones 40 mg/dL (NEGATIVE) H 10/22/17 17:30 Urine Blood Trace-lysed (NEGATIVE) H 10/22/17 17:30 Urine Nitrate Negative (NEGATIVE) 10/22/17 17:30 Urine Bilirubin Negative (NEGATIVE) 10/22/17 17:30 Urine Urobilinogen 0.2 E.U./dL (<1 E.U./dL) 10/22/17 17:30 Ur Leukocyte Esterase Negative Abhay/uL (NEGATIVE) 10/22/17 17:30 Urine RBC 2 - 5 /hpf (0-2) 10/22/17 17:30 Urine WBC 2 - 5 /hpf (0-6) 10/22/17 17:30 Ur Epithelial Cells 4 - 5 /hpf (0-5) 10/22/17 17:30 Urine Bacteria Many (NEG) 10/22/17 17:30 Urine Other Mucus 10/22/17 17:30 - Hospital Course Hospital Course: 52 year old female with past medical history of DM, htn, hpl, MELVA, and uterine fibroids who presents the ED for evaluation and treatment of abdominal pain which began yesterday evening without a specific provoking event. The pain is localized to the epigastrium and is characterized as being sharp in nature. Associated with nausea and 7 bouts of nonbloody nonbilious vomitting. Similar symptoms occurred 2 months ago with resolution without acute intervention. Denies recent travel and sick contacts. States her blood glucose is elevated because she ate marshmallows yesterday and began to fill sick causing her to miss her night time dose of insulin. Admits to subjective fevers and chills which have improved since onset. Patient denies intractable headache, fever, dizziness, blurry vision, ringing in the ears, chest pain, shortness of breath, diarrhea, constipation, and urinary symptoms. Pt found to have elevated blood sugar 363 on admission, given regular insulin in ED, along with Pepcid, zofran, protonix, 2L NS bolus. Pt then had relief of her nausea, vomiting and epigastric pain. Tolerating diet well. Discussed with patient to stay hydrated, and avoid foods with high glycemic index. Pt was having high SBP in 160-170s during hospital course. Along with her home anti-HTN medications, pt was also given a prescription for Norvasc 5 mg PO daily. For her GERD symptoms, pt given Protonix prescription. Pt advised to follow up with GI if symptoms persist for a possible EGD. Pt to follow up with PMD in [address] Sims. Olivia Poole, PGY1 Discharge Exam - Head Exam Head Exam: ATRAUMATIC, NORMOCEPHALIC - Eye Exam Eye Exam: EOMI, Normal appearance, PERRL. absent: Conjunctival injection, Scleral icterus Pupil Exam: PERRL - ENT Exam ENT Exam: Mucous Membranes Moist - Neck Exam Neck exam: Full Rom - Respiratory Exam Respiratory Exam: Clear to PA & Lateral, NORMAL BREATHING PATTERN. absent: Chest Wall Tenderness, Decreased Breath Sounds, Respiratory Distress - Cardiovascular Exam Cardiovascular Exam: RRR, +S1, +S2. absent: Systolic Murmur - GI/Abdominal Exam GI & Abdominal Exam: Normal Bowel Sounds, Soft. absent: Diminished Bowel Sounds , Distended, Guarding, Organomegaly, Tenderness - Extremities Exam Extremities exam: normal inspection - Back Exam Back exam: NORMAL INSPECTION. absent: CVA tenderness (L), CVA tenderness (R) - Neurological Exam Neurological exam: Alert, Oriented x3 - Psychiatric Exam Psychiatric exam: Normal Affect, Normal Mood - Skin Skin Exam: Dry, Normal Color, Warm Discharge Plan - Discharge Medications Prescriptions: amLODIPine [Norvasc] 5 mg PO DAILY #14 tab Pantoprazole Sodium [Protonix] 20 mg PO BID #20 ect - Follow Up Plan Condition: FAIR Disposition: HOME/ ROUTINE Patient education suggested?: Yes Instructions: Gastritis (DC), Gastritis (GEN), Gastroenteritis (DC), Acute Abdominal Pain (GEN), Diabetic Hyperglycemia (DC), Diabetic Hyperglycemia (GEN) Additional Instructions: - Please take Protonix for heartburn. - Your blood pressure was elevated during the hospital course. Take Norvasc 5 mg daily, along with your other antihypertensive medications, Metoprolol and Vasotec. - Your TSH was low (0.13) with Free T4 normal, 0.92, in the hospital. Recheck it with PMD in 6-8 weeks. - Follow up with PMD in 1 week. - Avoid high glycemic index foods. Keep a log diary of blood sugar measurements for 5 days, before each meal, and show it to PMD upon next visit. - If symptoms worsen or any concerns, return to the ED. Referrals: Boris Garcia MD [Primary Care Provider] - <Jose Sims - Last Filed: 10/24/17 16:28> Provider - Provider Date of Admission: 10/22/17 20:20 Attending physician: Jose Sims MD Primary care physician: Boris Garcia MD Hospital Course - Lab Results Lab Results: Most Recent Lab Values WBC 4.8 10^3/ul (4.5-11.0) 10/24/17 07:00 RBC 4.03 10^6/uL (3.5-6.1) 10/24/17 07:00 Hgb 12.1 g/dL (12.0-16.0) 10/24/17 07:00 Hct 37.1 % (36.0-48.0) 10/24/17 07:00 MCV 92.1 fl (80.0-105.0) 10/24/17 07:00 MCH 30.0 pg (25.0-35.0) 10/24/17 07:00 MCHC 32.6 g/dl (31.0-37.0) 10/24/17 07:00 RDW 13.1 % (11.5-14.5) 10/24/17 07:00 Plt Count 287 10^3/uL (120.0-450.0) 10/24/17 07:00 MPV 9.7 fl (7.0-11.0) 10/24/17 07:00 Gran % 46.8 % (50.0-68.0) L 10/24/17 07:00 Lymph % (Auto) 39.2 % (22.0-35.0) H 10/24/17 07:00 Hartley % (Auto) 12.1 % (1.0-6.0) H 10/24/17 07:00 Eos % (Auto) 1.7 % (1.5-5.0) 10/24/17 07:00 Baso % (Auto) 0.2 % (0.0-3.0) 10/24/17 07:00 Gran # 2.24 (1.4-6.5) 10/24/17 07:00 Lymph # 1.9 (1.2-3.4) 10/24/17 07:00 Hartley # 0.6 (0.1-0.6) 10/24/17 07:00 Eos # 0.1 (0.0-0.7) 10/24/17 07:00 Baso # 0.01 K/mm3 (0.0-2.0) 10/24/17 07:00 Neutrophils % (Manual) 73 % (50.0-70.0) H 10/22/17 17:30 Band Neutrophils % 9 % (0-2) H 10/22/17 17:30 Lymphocytes % (Manual) 9 % (22.0-35.0) L 10/22/17 17:30 Monocytes % (Manual) 6 % (1.0-6.0) 10/22/17 17:30 Eosinophils % (Manual) 3 % (0.0-3.0) 10/22/17 17:30 Platelet Evaluation Normal (NORMAL) 10/22/17 17:30 Sodium 142 mmol/L (132-148) 10/24/17 07:00 Potassium 4.3 mmol/L (3.6-5.0) 10/24/17 07:00 Chloride 107 mmol/L (98-107) 10/24/17 07:00 Carbon Dioxide 27 mmol/L (21-33) 10/24/17 07:00 Anion Gap 13 (10-20) 10/24/17 07:00 BUN 10 mg/dL (7-21) 10/24/17 07:00 Creatinine 0.6 mg/dl (0.7-1.2) L 10/24/17 07:00 Est GFR ( Amer) > 60 10/24/17 07:00 Est GFR (Non-Af Amer) > 60 10/24/17 07:00 POC Glucose (mg/dL) 147 mg/dL (65-110) H 10/24/17 11:39 Random Glucose 119 mg/dL (70-110) H 10/24/17 07:00 Hemoglobin A1c 11.8 % (4.2-6.5) H 10/22/17 17:30 Calcium 9.1 mg/dL (8.4-10.5) 10/24/17 07:00 Total Bilirubin 0.3 mg/dL (0.2-1.3) 10/24/17 07:00 AST 29 U/L (14-36) 10/24/17 07:00 ALT 43 U/L (7-56) 10/24/17 07:00 Alkaline Phosphatase 111 U/L (38-126) 10/24/17 07:00 Total Protein 6.8 g/dL (5.8-8.3) 10/24/17 07:00 Albumin 3.5 g/dL (3.0-4.8) 10/24/17 07:00 Globulin 3.3 gm/dL 10/24/17 07:00 Albumin/Globulin Ratio 1.1 (1.1-1.8) 10/24/17 07:00 Triglycerides 175 mg/dL (35-160) H 10/22/17 17:30 Cholesterol 270 mg/dL (130-200) H 10/22/17 17:30 LDL Cholesterol Direct 183 mg/dL (0-129) H 10/22/17 17:30 HDL Cholesterol 52 mg/dL (29-60) 10/22/17 17:30 Lipase 31 U/L (23-300) 10/22/17 17:30 Free T4 0.92 ng/dL (0.78-2.19) 10/23/17 09:30 TSH 3rd Generation 0.13 mIU/mL (0.46-4.68) L 10/23/17 09:30 Urine Color Yellow (YELLOW) 10/22/17 17:30 Urine Appearance Sl cloudy (CLEAR) 10/22/17 17:30 Urine pH 6.0 (4.7-8.0) 10/22/17 17:30 Ur Specific [place] >= 1.030 (1.005-1.035) 10/22/17 17:30 Urine Protein 100 mg/dL (<30 mg/dL) H 10/22/17 17:30 Urine Glucose (UA) >=1000 mg/dL (NEGATIVE) 10/22/17 17:30 Urine Ketones 40 mg/dL (NEGATIVE) H 10/22/17 17:30 Urine Blood Trace-lysed (NEGATIVE) H 10/22/17 17:30 Urine Nitrate Negative (NEGATIVE) 10/22/17 17:30 Urine Bilirubin Negative (NEGATIVE) 10/22/17 17:30 Urine Urobilinogen 0.2 E.U./dL (<1 E.U./dL) 10/22/17 17:30 Ur Leukocyte Esterase Negative Abhay/uL (NEGATIVE) 10/22/17 17:30 Urine RBC 2 - 5 /hpf (0-2) 10/22/17 17:30 Urine WBC 2 - 5 /hpf (0-6) 10/22/17 17:30 Ur Epithelial Cells 4 - 5 /hpf (0-5) 10/22/17 17:30 Urine Bacteria Many (NEG) 10/22/17 17:30 Urine Other Mucus 10/22/17 17:30 Attending/Attestation - Attestation I have personally seen and examined this patient.: Yes I have fully participated in the care of the patient.: Yes I have reviewed all pertinent clinical information, including history, physical exam and plan: Yes Notes (Text): 10/24/17 16:25 52 year old female with past medical history of hypertension and diabetes who presented with abdominal pain and nausea/vomiting, likely secondary to gastroenteritis vs gastritis. CT abd/pelvis is negative for acute findings. She was on protonix and zofran prn. Her symptoms resolved and her diet was advanced which she tolerated. Her home medications were continued for diabetes and hypertension, except metformin which was held during hospitalization. She was started on norvasc as well for hypertension. TSH was low with normal FT4 and she was recommended to repeat TFTs in 6-8 weeks. Patient is discharged home to follow up with her pmd. Jose Sims MD Hospitalist.
== END 2017-10-24 14:44 | disposition home or self-care (01) ==
LOC: ED 16:44 → ERH 20:20 → 2A 10-23 10:49
PROVIDERS: ADMIT Internal Medicine; ATTEND Internal Medicine
DX: A08.4 Viral intestinal infection, unspecified (principal); K29.70 Gastritis, unspecified, without bleeding; E11.65 Type 2 diabetes mellitus with hyperglycemia; E86.0 Dehydration; I10 Essential (primary) hypertension; G47.33 Obstructive sleep apnea (adult) (pediatric); D25.9 Leiomyoma of uterus, unspecified; K21.9 Gastro-esophageal reflux disease without esophagitis; E78.5 Hyperlipidemia, unspecified; Z79.4 Long term (current) use of insulin
CPT/HCPCS: 36415; 80053; 80061; 81001; 82948; 83036; 83690; 84439; 84443; 85025; 96360; 96361; 96372; 96374; 99285; C9113; G0378; J1885; J2405; J7040

== ENCOUNTER 2018-04-27 23:50 | Observation (INO) | payer MEDICAID ==
[2018-04-28 00:34] VITALS: BMI 37.6
--- NOTE | 2018-04-28 00:53 | ED PDOC ---
Arrival/HPI - General Chief Complaint: Back Pain Time Seen by Provider: 04/28/18 00:34 Historian: Patient - History of Present Illness Narrative History of Present Illness (Text): 04/28/18 00:50 52 year old female, whose past medical history includes diabetes and hypertension, who presents to the emergency department complaining of intermittent chest pain x couple weeks. Patient notes today chest pain occurred more frequently and radiated to shoulder and back. Patient denies any fevers, chills, shortness of breath, abdominal pain, nausea, vomiting, diarrhea, neck pain, headache, dizziness, or any other complaint. Time/Duration: < month Symptom Onset: Gradual Symptom Course: Unchanged Activities at Onset: Light Context: Home Past Medical History - Provider Review Nursing Documentation Reviewed: Yes - Infectious Disease Hx of Infectious Diseases: None - Cardiac Hx Cardiac Disorders: Yes Hx Hypertension: Yes Other/Comment: pt denies mi and cabg - Pulmonary Hx Respiratory Disorders: Yes Hx Sleep Apnea: Yes (dx 2011) Other/Comment: pt has home cpap and is waiting for new machine needed upgrade - Neurological Hx Neurological Disorder: No - HEENT Hx HEENT Disorder: Yes (eyeglasses) - Renal Hx Renal Disorder: No - Endocrine/Metabolic Hx Endocrine Disorders: Yes Hx Diabetes Mellitus Type 2: Yes - Hematological/Oncological Hx Blood Disorders: Yes Hx Anemia: Yes - Integumentary Hx Dermatological Disorder: No - Musculoskeletal/Rheumatological Hx Falls: No - Gastrointestinal Hx Gastrointestinal Disorders: Yes Other/Comment: Gallstones removed, had umbilical and left inguinal hernia sx, c sections x 2 - Genitourinary/Gynecological Other/Comment: 2 separate uterine fibroids surgeries pt had 11 fibroids removed , now has 3 more - Psychiatric Hx Psychophysiologic Disorder: No Hx Substance Use: No - Surgical History Hx Cholecystectomy: (gallstones removed not gallbladder) Other/Comment: fibroid sx x2 total 11 fibroids removed, c section x 2 - Anesthesia Hx Anesthesia: Yes Hx Anesthesia Reactions: No Hx Malignant Hyperthermia: No Family/Social History - Physician Review Nursing Documentation Reviewed: Yes Family/Social History: Unknown Family HX Smoking Status: Never Smoked Hx Alcohol Use: No Hx Substance Use: No Allergies/Home Meds Allergies/Adverse Reactions: Allergies No Known Allergies Allergy (Verified 04/28/18 00:34) Home Medications: Home Meds Medication Instructions Recorded Confirmed Enalapril Maleate [Vasotec] 20 mg PO BID 08/19/16 04/28/18 Metoprolol Succinate XL [Toprol XL] 25 mg PO DAILY 08/19/16 04/28/18 Simvastatin [Zocor] 20 mg PO DAILY 08/19/16 04/28/18 metFORMIN [glucOPHAGE] 500 mg PO BID 08/19/16 04/28/18 Insulin Lispro Mix 75/25 [HumaLOG 50 unit SC BID 02/18/17 04/28/18 Mix 75/25] Review of Systems - Physician Review All systems were reviewed & negative as marked: Yes - Review of Systems Constitutional: Normal Eyes: Normal ENT: Normal Respiratory: Normal. absent: SOB, Cough Cardiovascular: Chest Pain Gastrointestinal: Normal. absent: Abdominal Pain, Diarrhea, Nausea, Vomiting Genitourinary Female: Normal. absent: Dysuria, Hematuria Musculoskeletal: Other (chest pain radiated to shoulder and back). absent: Neck Pain Skin: Normal. absent: Rash Neurological: Normal. absent: Headache, Dizziness Endocrine: Normal Hemo/Lymphatic: Normal Psychiatric: Normal Physical Exam Vital Signs Reviewed: Yes Vital Signs Temp Pulse Resp BP Pulse Ox 04/28/18 03:10 72 18 99 04/28/18 00:43 97.8 F 67 20 156/86 H 99 Temperature: Afebrile Blood Pressure: Hypertensive Pulse: Regular Respiratory Rate: Normal Appearance: Positive for: Well-Appearing, Non-Toxic, Comfortable Pain Distress: None Mental Status: Positive for: Alert and Oriented X 3 - Systems Exam Head: Present: Atraumatic, Normocephalic Pupils: Present: PERRL Extroacular Muscles: Present: EOMI Conjunctiva: Present: Normal Mouth: Present: Moist Mucous Membranes Neck: Present: Normal Range of Motion Respiratory/Chest: Present: Clear to Auscultation, Good Air Exchange. No: Respiratory Distress, Accessory Muscle Use Cardiovascular: Present: Regular Rate and Rhythm, Normal S1, S2. No: Murmurs Abdomen: No: Tenderness, Distention, Peritoneal Signs Back: Present: Normal Inspection Upper Extremity: Present: Normal Inspection. No: Cyanosis, Edema Lower Extremity: Present: Normal Inspection. No: Edema, CALF TENDERNESS, Jessenia' s Sign Neurological: Present: GCS=15, CN II-XII Intact, Speech Normal Skin: Present: Warm, Dry, Normal Color. No: Rashes Psychiatric: Present: Alert, Oriented x 3, Normal Insight, Normal Concentration Medical Decision Making ED Course and Treatment: 04/28/18 00:54 Impression: 52 year old female presents to the emergency department complaining of chest pain x couple weeks. Plan: -- EKG -- Labs -- Chest X-ray -- Aspirin -- Reassess and disposition Progress Notes: EKG reviewed, shows NSR 65 bpm. No acute changes. 04/28/18 03:26 Case discussed with medical records specialist and Dr. Bill, who accepts pt into his service. Pt admitted to telemetry observation. - Lab Interpretations Lab Results: 04/28/18 01:20 04/28/18 01:20 Lab Results 04/28/18 01:20: WBC 6.6 D, RBC 4.36, Hgb 13.2, Hct 38.7, MCV 88.8 D, MCH 30.3 , MCHC 34.1, RDW 12.5, Plt Count 326, MPV 10.0 04/28/18 01:20: Sodium 142, Potassium 4.5, Chloride 103, Carbon Dioxide 28, Anion Gap 15, BUN 14, Creatinine 0.6 L, Est GFR ( Amer) > 60, Est GFR ( Non-Af Amer) > 60, Random Glucose 343 H* D, Calcium 9.7, Total Bilirubin 0.4, AST 17, ALT 31, Alkaline Phosphatase 145 H D, Lactate Dehydrogenase 457, Total Creatine Kinase 79, Troponin I < 0.01, Total Protein 7.8, Albumin 4.3, Globulin 3.5, Albumin/Globulin Ratio 1.2 04/28/18 01:20: PT 10.4, INR 0.91 L, APTT 30.6 - RAD Interpretation Radiology Orders: 04/28/18 00:51 CHEST PORTABLE [RAD] Stat - Medication Orders Current Medication Orders: Discontinued Medications Aspirin (Aspirin) 325 mg PO ONCE STA Stop: 04/28/18 00:51 Last Admin: 04/28/18 01:04 Dose: 325 mg - Scribe Statement The provider has reviewed the documentation as recorded by the Michaelibbernice Woody All medical record entries made by the Michaelibbernice were at my direction and personally dictated by me. I have reviewed the chart and agree that the record accurately reflects my personal performance of the history, physical exam, medical decision making, and the department course for this patient. I have also personally directed, reviewed, and agree with the discharge instructions and disposition. Disposition/Present on Arrival - Present on Arrival Any Indicators Present on Arrival: No History of DVT/PE: No History of Uncontrolled Diabetes: No Urinary Catheter: No History of Decub. Ulcer: No History Surgical Site Infection Following: None - Disposition Have Diagnosis and Disposition been Completed?: Yes Diagnosis: Chest pain Disposition: HOSPITALIZED Disposition Time: 03:17 Patient Problems: Current Active Problems Problem Status Onset Chest pain Acute Condition: STABLE
[2018-04-28 01:54] LABS: ALB/GLOB RATIO 1.2 (1.1-1.8); ALBUMIN 4.3 g/dL (3.0-4.8); ALT/SGPT 31 U/L (7-56); AST/SGOT 17 U/L (14-36); BLOOD UREA NITROGEN 14 mg/dL (7-21); CALCIUM 9.7 mg/dL (8.4-10.5); GFR AFRICAN-AMERICAN > 60; GFR NON-AFRICAN AMERICAN > 60
[2018-04-28 01:55] LABS: TROPONIN I < 0.01 ng/mL
[2018-04-28 01:57] LABS: HEMOGLOBIN 13.2 g/dL (12.0-16.0); MEAN CELL VOLUME 88.8 fl (80.0-105.0); MEAN CORPUSCULAR HEMOGLOBIN 30.3 pg (25.0-35.0); MEAN CORPUSCULAR HGB CONC 34.1 g/dl (31.0-37.0); RBC 4.36 10^6/uL (3.5-6.1); RED CELL DISTRIBUTION WIDTH 12.5 % (11.5-14.5); WHITE BLOOD COUNT 6.6 10^3/ul (4.5-11.0)
[2018-04-28 02:36] LABS: INR 0.91 (0.93-1.08); PARTIAL THROMBOPLASTIN TIME 30.6 Seconds (25.1-36.5); PROTHROMBIN TIME 10.4 SECONDS (9.4-12.5)
--- NOTE | 2018-04-28 04:03 | CP.PCM.HP ---
<Devin Goode - Last Filed: 04/28/18 04:31> History of Present Illness - History of Present Illness History of Present Illness: Devin Goode PGY3, Hospitalist H&P CC: Chest pain 52 F with past medical history includes DM and hypertension, who presents to the emergency department complaining of chest pain. patient states that her chest pain started 2 days ago and has gotten progressively worse. The pain is substernal and radiates to her back and R arm. The pain has gotten progressively worse which made her come to the ED, Currently 8/10 in severity. Patient was taking Aleve for the pain but states it doesn't alleviate the pain anymore. Patient went to her PMD 2 weeks ago and had an EKG done for a routine colonoscopy and EKG was read abnormal. Patient followed up with her silverer , Dr Chung, and had a stress test which was normal. Patient also report that she was on daily aspirin but has not been taking it the last few weeks. She also reports some shortness of breath while going up a flight of steps however denies any shortness of breath with walking.No other complaints. 12 point ROS was performed and negative other than stated above. PMD: Beety PMH: As above PSH: 2 abdominal hernia repairs, ANLL: NKA SH: Patient denies any alcohol, smoking, illicit drug use. FH: Father with diabetes. Mother with hypertension. Present on Admission - Present on Admission Any Indicators Present on Admission: No Review of Systems - Review of Systems All systems: reviewed and no additional remarkable complaints except (HPI) Past Patient History - Infectious Disease Hx of Infectious Diseases: None - Past Social History Smoking Status: Never Smoked - CARDIAC Hx Cardiac Disorders: Yes Hx Hypertension: Yes Other/Comment: pt denies mi and cabg - PULMONARY Hx Respiratory Disorders: Yes Hx Sleep Apnea: Yes (dx 2011) Other/Comment: pt has home cpap and is waiting for new machine needed upgrade - NEUROLOGICAL Hx Neurological Disorder: No - HEENT Hx HEENT Problems: Yes (eyeglasses) - RENAL Hx Chronic Kidney Disease: No - ENDOCRINE/METABOLIC Hx Endocrine Disorders: Yes Hx Diabetes Mellitus Type 2: Yes - HEMATOLOGICAL/ONCOLOGICAL Hx Blood Disorders: Yes Hx Anemia: Yes - INTEGUMENTARY Hx Dermatological Problems: No - MUSCULOSKELETAL/RHEUMATOLOGICAL Hx Falls: No - GASTROINTESTINAL Hx Gastrointestinal Disorders: Yes Other/Comment: Gallstones removed, had umbilical and left inguinal hernia sx, c sections x 2 - GENITOURINARY/GYNECOLOGICAL Other/Comment: 2 separate uterine fibroids surgeries pt had 11 fibroids removed , now has 3 more - PSYCHIATRIC Hx Psychophysiologic Disorder: No Hx Substance Use: No - SURGICAL HISTORY Hx Cholecystectomy: (gallstones removed not gallbladder) Other/Comment: fibroid sx x2 total 11 fibroids removed, c section x 2 - ANESTHESIA Hx Anesthesia: Yes Hx Anesthesia Reactions: No Hx Malignant Hyperthermia: No Meds Allergies/Adverse Reactions: Allergies Allergy/AdvReac Type Severity Reaction Status Date / Time No Known Allergies Allergy Verified 04/28/18 00:34 Physical Exam - Constitutional Appears: No Acute Distress - Head Exam Head Exam: ATRAUMATIC, NORMOCEPHALIC - Eye Exam Eye Exam: EOMI, PERRL - ENT Exam ENT Exam: Mucous Membranes Moist - Respiratory Exam Respiratory Exam: Clear to Auscultation Bilateral. absent: Wheezes - Cardiovascular Exam Cardiovascular Exam: REGULAR RHYTHM, RRR, +S1, +S2 - GI/Abdominal Exam GI & Abdominal Exam: Normal Bowel Sounds, Soft. absent: Tenderness - Extremities Exam Extremities exam: Negative for: calf tenderness, pedal edema - Neurological Exam Neurological exam: Alert, CN II-XII Intact, Oriented x3 - Psychiatric Exam Psychiatric exam: Normal Affect, Normal Mood - Skin Skin Exam: Dry, Intact, Warm Results - Vital Signs Recent Vital Signs: Last Vital Signs Temp 97.8 F 04/28/18 00:43 Pulse 72 04/28/18 03:10 Resp 18 04/28/18 03:10 BP 156/86 H 04/28/18 00:43 Pulse Ox 99 04/28/18 03:10 - Labs Result Diagrams: 04/28/18 01:20 04/28/18 01:20 Assessment & Plan - Assessment and Plan (Free Text) Assessment: 52 F with past medical history includes DM and hypertension, who presents to the emergency department complaining of chest pain r/o ACS. 1. Chest pain R/o ACS Aspirin 325mg in the ED Troponin 1 negative in the ED, EKG in the ED showed NSR with no ST or T-wave abnormality. Follow-up serial troponin Morning EKG Cardiology consulted for recommendations Follow-up echo Aspirin daily Nitroglycerin SL as needed Continue home medications with lisinopril, metoprolol, and Zocor Follow-up lipid panel, hemoglobin A1c, TSH Tele monitoring 2. Diabetes Started on sliding scale as protocol, ACHS Hold home medications including metformin Follow-up hemoglobin A1c 3. Hypertension Continue home medications including Amlodipine, metoprolol and lisinopril 4. GI/DVT prophylaxis Continue Pepcid and Lovenox sc Case and plan was reviewed and discussed in detail with Dr. Oconnell. <Jesus Oconnell - Last Filed: 04/28/18 06:44> Results - Vital Signs Recent Vital Signs: Last Vital Signs Temp 98.6 F 04/28/18 05:20 Pulse 74 04/28/18 05:20 Resp 18 04/28/18 05:20 BP 140/74 04/28/18 05:20 Pulse Ox 100 04/28/18 05:20 - Labs Result Diagrams: 04/28/18 01:20 04/28/18 01:20 Attending/Attestation - Attestation I have personally seen and examined this patient.: Yes I have fully participated in the care of the patient.: Yes I have reviewed all pertinent clinical information: Yes Notes (Text): Patient seen and examined with the residents, agree with above substernal chest pain r/o ACS negative troponin x1, will continue to trend LDL elevated - will change to high intensity statin cardioprotective medications f/u on echo to assess for [facility] cardio consultation
[2018-04-28 04:12] LABS: HDL CHOLESTEROL 40 mg/dL (29-60)
[2018-04-28 04:23] LABS: LDL CHOLESTEROL 145 mg/dL (0-129)
[2018-04-28] MEDS ORDERED: Insulin Reg-LOW-Coverage SC SCH (07:30)
--- NOTE | 2018-04-28 08:41 | RAD ---
Date of service: 04/28/2018 HISTORY: chest pain COMPARISON: No prior. FINDINGS: LUNGS: The lungs are clear. PLEURA: No significant pleural effusion identified, no pneumothorax apparent. CARDIOVASCULAR: Normal. OSSEOUS STRUCTURES: No significant abnormalities. VISUALIZED UPPER ABDOMEN: Normal. OTHER FINDINGS: None. IMPRESSION: No active pulmonary disease.
[2018-04-28] MEDS ORDERED: Insulin Regular 1 UNITS/0.01 ML ML SC ONE (09:47)
[2018-04-28] MEDS ORDERED: Metoprolol Succinate 25 mg XL Tab PO SCH (10:00)
[2018-04-28] MEDS ORDERED: Enoxaparin 40 mg Syringe SC SCH (10:00)
--- NOTE | 2018-04-28 12:12 | CARD ---
APPROVED REPORT Date of service: 04/28/2018 EKG Measurement Heart [id number] [place] [id number] <Conclusion> Normal sinus rhythm Normal ECG
--- NOTE | 2018-04-28 12:14 | CARD ---
APPROVED REPORT Date of service: 04/28/2018 EKG Measurement Heart [id number] [place] [id number] <Conclusion> Normal sinus rhythm Normal ECG
[2018-04-28 13:48] VITALS: RESP 18
[2018-04-28] MEDS: Insulin Reg-MEDIUM-Coverage SC SCH ×2 (13:57→17:39)
[2018-04-28 14:42] LABS: BASO # 0.01 K/mm3 (0.0-2.0); BASO % 0.2 % (0.0-3.0); EOS # 0.1 (0.0-0.7); EOS % 1.8 % (1.5-5.0); GRAN # 3.22 (1.4-6.5); GRAN % 51.2 % (50.0-68.0); LYMPH # 2.5 (1.2-3.4); LYMPH % 39.3 % (22.0-35.0); MEAN CELL VOLUME 88.3 fl (80.0-105.0); MEAN CORPUSCULAR HEMOGLOBIN 30.4 pg (25.0-35.0); MEAN CORPUSCULAR HGB CONC 34.4 g/dl (31.0-37.0); MEAN PLATELET VOLUME 9.9 fl (7.0-11.0); MONO # 0.5 (0.1-0.6); MONO % 7.5 % (1.0-6.0); RBC 4.28 10^6/uL (3.5-6.1); RED CELL DISTRIBUTION WIDTH 12.7 % (11.5-14.5); WHITE BLOOD COUNT 6.3 10^3/ul (4.5-11.0)
[2018-04-28 14:58] LABS: ALB/GLOB RATIO 1.1 (1.1-1.8); ALBUMIN 4.1 g/dL (3.0-4.8); ALT/SGPT 28 U/L (7-56); AST/SGOT 18 U/L (14-36); BLOOD UREA NITROGEN 11 mg/dL (7-21); GFR AFRICAN-AMERICAN > 60; GFR NON-AFRICAN AMERICAN > 60
--- NOTE | 2018-04-28 16:17 | CP.PCM.DIS ---
<Gurvinder Downs - Last Filed: 04/29/18 07:54> Provider - Provider Date of Admission: 04/28/18 03:15 Attending physician: Jose Sims MD Primary care physician: Boris Garcia MD Consults: Dr. Maldonado - Cardiology Time Spent in preparation of Discharge (in minutes): 30 Hospital Course - Lab Results Lab Results: Most Recent Lab Values WBC 6.3 10^3/ul (4.5-11.0) 04/28/18 14:32 RBC 4.28 10^6/uL (3.5-6.1) 04/28/18 14:32 Hgb 13.0 g/dL (12.0-16.0) 04/28/18 14:32 Hct 37.8 % (36.0-48.0) 04/28/18 14:32 MCV 88.3 fl (80.0-105.0) 04/28/18 14:32 MCH 30.4 pg (25.0-35.0) 04/28/18 14:32 MCHC 34.4 g/dl (31.0-37.0) 04/28/18 14:32 RDW 12.7 % (11.5-14.5) 04/28/18 14:32 Plt Count 313 10^3/uL (120.0-450.0) 04/28/18 14:32 MPV 9.9 fl (7.0-11.0) 04/28/18 14:32 Gran % 51.2 % (50.0-68.0) 04/28/18 14:32 Lymph % (Auto) 39.3 % (22.0-35.0) H 04/28/18 14:32 Dickens % (Auto) 7.5 % (1.0-6.0) H 04/28/18 14:32 Eos % (Auto) 1.8 % (1.5-5.0) 04/28/18 14:32 Baso % (Auto) 0.2 % (0.0-3.0) 04/28/18 14:32 Gran # 3.22 (1.4-6.5) 04/28/18 14:32 Lymph # (Auto) 2.5 (1.2-3.4) 04/28/18 14:32 Dickens # (Auto) 0.5 (0.1-0.6) 04/28/18 14:32 Eos # (Auto) 0.1 (0.0-0.7) 04/28/18 14:32 Baso # (Auto) 0.01 K/mm3 (0.0-2.0) 04/28/18 14:32 PT 10.4 SECONDS (9.4-12.5) 04/28/18 01:20 INR 0.91 (0.93-1.08) L 04/28/18 01:20 APTT 30.6 Seconds (25.1-36.5) 04/28/18 01:20 Sodium 140 mmol/L (132-148) 04/28/18 14:32 Potassium 4.1 mmol/L (3.6-5.0) 04/28/18 14:32 Chloride 101 mmol/L (98-107) 04/28/18 14:32 Carbon Dioxide 27 mmol/L (21-33) 04/28/18 14:32 Anion Gap 16 (10-20) 04/28/18 14:32 BUN 11 mg/dL (7-21) 04/28/18 14:32 Creatinine 0.6 mg/dl (0.7-1.2) L 04/28/18 14:32 Est GFR ( Amer) > 60 04/28/18 14:32 Est GFR (Non-Af Amer) > 60 04/28/18 14:32 POC Glucose (mg/dL) 297 mg/dL (65-110) H 04/28/18 02:49 Random Glucose 320 mg/dL (70-110) H* 04/28/18 14:32 Calcium 9.0 mg/dL (8.4-10.5) 04/28/18 14:32 Total Bilirubin 0.3 mg/dL (0.2-1.3) 04/28/18 14:32 AST 18 U/L (14-36) 04/28/18 14:32 ALT 28 U/L (7-56) 04/28/18 14:32 Alkaline Phosphatase 143 U/L (38-126) H 04/28/18 14:32 Lactate Dehydrogenase 457 U/L (333-699) 04/28/18 01:20 Total Creatine Kinase 79 U/L (35-230) 04/28/18 01:20 Troponin I < 0.01 ng/mL 04/28/18 13:58 NT-Pro-B Natriuret Pep 11.1 pg/mL (0-450) 04/28/18 07:30 Total Protein 7.8 g/dL (5.8-8.3) 04/28/18 14:32 Albumin 4.1 g/dL (3.0-4.8) 04/28/18 14:32 Globulin 3.7 gm/dL 04/28/18 14:32 Albumin/Globulin Ratio 1.1 (1.1-1.8) 04/28/18 14:32 Triglycerides 215 mg/dL (35-160) H 04/28/18 01:20 Cholesterol 225 mg/dL (130-200) H 04/28/18 01:20 LDL Cholesterol Direct 145 mg/dL (0-129) H 04/28/18 01:20 HDL Cholesterol 40 mg/dL (29-60) 04/28/18 01:20 Lipase 59 U/L (23-300) 04/28/18 01:20 TSH 3rd Generation 1.87 mIU/mL (0.46-4.68) 04/28/18 01:20 - Hospital Course Hospital Course: 52 F with past medical history includes DM and hypertension, who presents to the emergency department complaining of chest pain. patient states that her chest pain started 2 days ago and has gotten progressively worse. Patient recently had a stress test 2 weeks ago which was normal. Patient's lipid panel was ordered, which revealed elevated TG's (215), Cholesterol (225), and LDL (145 ). Patient is on a statin at home, high dose (atorvastatin 40). Patient also had two EKG's without ST/T changes and 3 troponins were trended, all of which were negative. Risk stratifiction was provided by Dr. Maldonado, the vacuum form operator, who stated patient is low risk for AMI and can follow up as an outpatient. NAGA score revealed the same. Patient was advised to follow up with her vacuum form operator, Dr. Chung, and was deemed stable for discharge. She was advised to return to ED if her symptoms persisted, and was adised to take all of her medications Discharge Exam - Head Exam Head Exam: ATRAUMATIC, NORMAL INSPECTION, NORMOCEPHALIC - Eye Exam Eye Exam: EOMI, Normal appearance, PERRL Pupil Exam: NORMAL ACCOMODATION, PERRL - Respiratory Exam Respiratory Exam: Clear to PA & Lateral, NORMAL BREATHING PATTERN, UNREMARKABLE - Cardiovascular Exam Cardiovascular Exam: REGULAR RHYTHM - GI/Abdominal Exam GI & Abdominal Exam: Normal Bowel Sounds, Unremarkable - Extremities Exam Extremities exam: full ROM, normal capillary refill, pedal pulses present - Back Exam Back exam: NORMAL INSPECTION - Neurological Exam Neurological exam: Alert, CN II-XII Intact, Normal Gait, Oriented x3, Reflexes Normal - Psychiatric Exam Psychiatric exam: Normal Affect, Normal Mood - Skin Skin Exam: Dry, Intact, Normal Color, Warm Discharge Plan - Discharge Medications Prescriptions: Aspirin [Aspirin Chewable] 81 mg PO DAILY #30 chew - Follow Up Plan Condition: STABLE Disposition: HOME/ ROUTINE Instructions: Chest Pain (DC), Chest Pain (GEN), Acute Abdominal Pain (DC), Acute Abdominal Pain (GEN) Additional Instructions: 1. Please follow up with your vacuum form operator in one week 2. If symptoms persist or return please come back to ED Referrals: Boris Garcia MD [Primary Care Provider] - <Jose Sims - Last Filed: 04/29/18 08:33> Provider - Provider Date of Admission: 04/28/18 03:15 Attending physician: Jose Sims MD Primary care physician: Boris Garcia MD Hospital Course - Lab Results Lab Results: Most Recent Lab Values WBC 6.3 10^3/ul (4.5-11.0) 04/28/18 14:32 RBC 4.28 10^6/uL (3.5-6.1) 04/28/18 14:32 Hgb 13.0 g/dL (12.0-16.0) 04/28/18 14:32 Hct 37.8 % (36.0-48.0) 04/28/18 14:32 MCV 88.3 fl (80.0-105.0) 04/28/18 14:32 MCH 30.4 pg (25.0-35.0) 04/28/18 14:32 MCHC 34.4 g/dl (31.0-37.0) 04/28/18 14:32 RDW 12.7 % (11.5-14.5) 04/28/18 14:32 Plt Count 313 10^3/uL (120.0-450.0) 04/28/18 14:32 MPV 9.9 fl (7.0-11.0) 04/28/18 14:32 Gran % 51.2 % (50.0-68.0) 04/28/18 14:32 Lymph % (Auto) 39.3 % (22.0-35.0) H 04/28/18 14:32 Dickens % (Auto) 7.5 % (1.0-6.0) H 04/28/18 14:32 Eos % (Auto) 1.8 % (1.5-5.0) 04/28/18 14:32 Baso % (Auto) 0.2 % (0.0-3.0) 04/28/18 14:32 Gran # 3.22 (1.4-6.5) 04/28/18 14:32 Lymph # (Auto) 2.5 (1.2-3.4) 04/28/18 14:32 Dickens # (Auto) 0.5 (0.1-0.6) 04/28/18 14:32 Eos # (Auto) 0.1 (0.0-0.7) 04/28/18 14:32 Baso # (Auto) 0.01 K/mm3 (0.0-2.0) 04/28/18 14:32 PT 10.4 SECONDS (9.4-12.5) 04/28/18 01:20 INR 0.91 (0.93-1.08) L 04/28/18 01:20 APTT 30.6 Seconds (25.1-36.5) 04/28/18 01:20 Sodium 140 mmol/L (132-148) 04/28/18 14:32 Potassium 4.1 mmol/L (3.6-5.0) 04/28/18 14:32 Chloride 101 mmol/L (98-107) 04/28/18 14:32 Carbon Dioxide 27 mmol/L (21-33) 04/28/18 14:32 Anion Gap 16 (10-20) 04/28/18 14:32 BUN 11 mg/dL (7-21) 04/28/18 14:32 Creatinine 0.6 mg/dl (0.7-1.2) L 04/28/18 14:32 Est GFR ( Amer) > 60 04/28/18 14:32 Est GFR (Non-Af Amer) > 60 04/28/18 14:32 POC Glucose (mg/dL) 297 mg/dL (65-110) H 04/28/18 02:49 Random Glucose 320 mg/dL (70-110) H* 04/28/18 14:32 Calcium 9.0 mg/dL (8.4-10.5) 04/28/18 14:32 Total Bilirubin 0.3 mg/dL (0.2-1.3) 04/28/18 14:32 AST 18 U/L (14-36) 04/28/18 14:32 ALT 28 U/L (7-56) 04/28/18 14:32 Alkaline Phosphatase 143 U/L (38-126) H 04/28/18 14:32 Lactate Dehydrogenase 457 U/L (333-699) 04/28/18 01:20 Total Creatine Kinase 79 U/L (35-230) 04/28/18 01:20 Troponin I < 0.01 ng/mL 04/28/18 13:58 NT-Pro-B Natriuret Pep 11.1 pg/mL (0-450) 04/28/18 07:30 Total Protein 7.8 g/dL (5.8-8.3) 04/28/18 14:32 Albumin 4.1 g/dL (3.0-4.8) 04/28/18 14:32 Globulin 3.7 gm/dL 04/28/18 14:32 Albumin/Globulin Ratio 1.1 (1.1-1.8) 04/28/18 14:32 Triglycerides 215 mg/dL (35-160) H 04/28/18 01:20 Cholesterol 225 mg/dL (130-200) H 04/28/18 01:20 LDL Cholesterol Direct 145 mg/dL (0-129) H 04/28/18 01:20 HDL Cholesterol 40 mg/dL (29-60) 04/28/18 01:20 Lipase 59 U/L (23-300) 04/28/18 01:20 TSH 3rd Generation 1.87 mIU/mL (0.46-4.68) 04/28/18 01:20 Attending/Attestation - Attestation I have personally seen and examined this patient.: Yes I have fully participated in the care of the patient.: Yes I have reviewed all pertinent clinical information, including history, physical exam and plan: Yes Notes (Text): 04/28/18 52 year old female with past medical history of hypertension, dyslipidemia and diabetes who presented with complaint of chest pain. Serial cardiac enzymes were negative and ACS was ruled out. She reports she had a recent negative cardiac stress test 2 weeks ago. She was seen by cardiology today as well. Her chest pain improved. Patient is discharged home to follow up with her pmd and vacuum form operator. Jose Sims MD Hospitalist.
[2018-04-28] MEDS ORDERED: Insulin Lispro (humaLOG) MIX 75/25(10 ml) SC SCH (18:00)
[2018-04-28 18:15] VITALS: BP 118/74; PULSE 80; TEMP 98; O2SAT 96
--- NOTE | 2018-04-28 22:08 | CON ---
DATE: 04/28/2018 REASON FOR THE CONSULTATION: Chest pain. REASON FOR DICTATION: Covering Dr. Woodson. BRIEF CLINICAL HISTORY: A 52-year-old female with history of moderate obesity, diabetes, hypertension, hyperlipidemia, came to the emergency room with complaint of left-sided chest pain, it was very tender with deep palpitation as well as chest pain increases on movement of the left arm above the head and/or moving backward. The patient had recently a stress test done by Dr. Marv Chung at [facility], was told negative, 2 weeks ago. Denies any dyspnea on exertion or chest pain on exertion. PAST MEDICAL HISTORY: Past history significant for obesity, diabetes, hypertension and hyperlipidemia. SOCIAL HISTORY: Denies any history of smoking. Denies any history of alcohol abuse. PAST SURGICAL HISTORY: Significant for section, hysterectomy, hernia surgery in the past. FAMILY HISTORY: Noncontributory. ALLERGIES: NO KNOWN DRUG ALLERGY. CURRENT MEDICATIONS: The patient is taking metformin 500 p.o. b.i.d., amlodipine 5 mg daily, simvastatin 20 mg daily, metoprolol succinate 25 mg daily, insulin 75/25 at 50 units twice, Pepcid 40 mg daily, enalapril 20 mg daily, aspirin 81 mg daily. REVIEW OF THE SYSTEMS: As per HPI. PREVIOUS CARDIAC WORKUP: As follows, the patient had recent echo and stress test done by Dr. Marv Chung at [facility] and was told negative 2 weeks ago. EKG shows normal sinus rhythm. No acute ST-T changes noted. LABORATORY DATA: Blood workup as follows, WBC 6.6, hemoglobin 13.2, hematocrit 38.7, platelet count 326. Chemistry shows sodium 140, potassium 4.5, chloride 103, carbon dioxide 28, anion gap of 15, BUN 14, creatinine 0.6. Troponin 0.01, x2 negative. TSH is 1.87, triglyceride 215, cholesterol 225, LDL 145, HDL 40. RECOMMENDATIONS: Atypical chest pain, musculoskeletal. We will start some nonsteroidal antiinflammatory drug and do one more set of troponin. If troponin negative, we will discontinue telemetry. Follow up with Dr. Marv Chung. I explained to the patient and explained to the resident taking care as well as discussed with Dr. Sims. Thank you, Dr. Sims for providing us the opportunity in taking care of the patient, Susana Pedroza. Elizabeth Maldonado MD
--- NOTE | 2018-04-29 12:57 | CARD ---
APPROVED REPORT Date of service: 04/28/2018 EXAM: Two-dimensional and M-mode echocardiogram with Doppler and color Doppler. INDICATION ASD 2D DIMENSIONS Left Atrium (2D)3.4 (1.6-4.0cm)IVSd1.3 (0.7-1.1cm) LVDd4.7 (3.9-5.9cm)LVOT Diameter1.8 (1.8-2.4cm) PWd1.2 (0.7-1.1cm)LVDs3.3 (2.5-4.0cm) FS (%) 29.2 %LVEF (%)56.1 (>50%) M-Mode DIMENSIONS Aortic Root2.50 (2.2-3.7cm)Aortic Cusp Exc.1.40 (1.5-2.0cm) Aortic Valve AoV Peak Jmorvsjv235.0cm/sAoV VTI44.3cmAO Peak GR.16mmHg LVOT Peak Lqagilnh209.0cm/sLVOT VTI24.30cmAO Mean GR.10mmHg FAY (VMAX)1.52te7AYP (VTI)1.39cm2 Mitral Valve MV E Beyklbim606.0cm/sMV A Ximztkrl214.0cm/sE/A ratio0.9 TDI Lateral E' Peak V8.58cm/sMedial E' Peak V7.70cm/sE/Lateral E'12.8 E/Medial E'14.3 Tricuspid Valve TR Peak Fdpggzua046ow/sRAP [id number] Peak Gr.20mmHg [id number] LEFT VENTRICLE The left ventricle is normal size. There is mild concentric left ventricular hypertrophy. The left ventricular function is normal.EF-55-60% There is normal LV segmental wall motion. Transmitral Doppler flow pattern is Grade III-reversible restrictive diastolic dysfunction. No left ventricle thrombus noted on this study. There is no ventricular septal defect visualized. There is no left ventricular aneurysm. There is no mass noted in the left ventricle. RIGHT VENTRICLE The right ventricle is normal size. There is normal right ventricular wall thickness. The right ventricular systolic function is normal. ATRIA The left atrium size is normal. The right atrium size is normal. The interatrial septum is intact with no evidence for an atrial septal defect. AORTIC VALVE The aortic valve is thickened but opens well. No aortic regurgitation is present. There is no aortic valvular stenosis. There is no aortic valvular vegetation. MITRAL VALVE The mitral valve is thickened but opens well. Mitral regurgitation is trace. There is no mitral valve stenosis. There is no evidence of mitral valve prolapse. TRICUSPID VALVE The tricuspid valve is normal in structure. There is trace tricuspid regurgitation.RVBSP-30 mmof Hg There is no tricuspid valve stenosis. There is no tricuspid valve prolapse or vegetation. PULMONIC VALVE The pulmonary valve is normal in structure. There is trace pulmonic valvular regurgitation. There is no pulmonic valvular stenosis. GREAT VESSELS The aortic root is normal in size. The ascending aorta is normal in size. The pulmonary artery is normal. The IVC is normal in size and collapses >50% with inspiration. PERICARDIAL EFFUSION There is no pleural effusion. There is no pericardial effusion. <Conclusion> Normal chamber Size. EF-55-60%. Trace MR/TR/PI RVSP-30 mmof Hg.
== END 2018-04-28 19:03 | disposition home or self-care (01) ==
LOC: ED 23:50 → ERH 04-28 03:15 → 2RNO 04-28 05:14
PROVIDERS: ADMIT Internal Medicine; ATTEND Internal Medicine
DX: R07.89 Other chest pain (principal); I10 Essential (primary) hypertension; E11.9 Type 2 diabetes mellitus without complications; E78.5 Hyperlipidemia, unspecified; G47.30 Sleep apnea, unspecified; E66.9 Obesity, unspecified; Z68.39 Body mass index [BMI] 39.0-39.9, adult; Z79.82 Long term (current) use of aspirin; Z82.49 Family history of ischemic heart disease and other diseases of the circulatory system; Z83.3 Family history of diabetes mellitus; Z90.49 Acquired absence of other specified parts of digestive tract; Z90.710 Acquired absence of both cervix and uterus
CPT/HCPCS: 71045; 80053; 80061; 82550; 82948; 83036; 83615; 83690; 83880; 84443; 84484; 85025; 85027; 85610; 85730; 93005; 93306; 99283; G0378; J1650

== ENCOUNTER 2018-08-24 21:00 | Emergency (ER) | payer MEDICAID ==
[2018-08-24 22:12] VITALS: BMI 38.6
[2018-08-24] MEDS ORDERED: Sodium Chloride 0.9% 1,000 ML IV STA (22:31)
[2018-08-24] MEDS ORDERED: Atrop/Hyosc/Scopal/PB Elixir (120 ml) PO STA (22:40)
[2018-08-24] MEDS ORDERED: Alum-Mag Hydrox-Simethicone Susp (30 mL) PO STA (22:40)
--- NOTE | 2018-08-24 22:47 | ED PDOC ---
Arrival/HPI - General Chief Complaint: Abdominal Pain Time Seen by Provider: 08/24/18 21:33 Historian: Patient - History of Present Illness Narrative History of Present Illness (Text): 08/24/18 22:43 53 year old female, whose past medical history includes hypertension, abdominal history and gallstone surgery, who presents to the Emergency department complaining of abdominal pain today. Patient notes associated n/v/d, and chills. Patient notes pain as cramping. Patient denies any fevers, chest pain, shortness of breath, back pain, neck pain, headache, dizziness, or any other complaint. Time/Duration: 24 hours Symptom Onset: Gradual Symptom Course: Unchanged Activities at Onset: Light Context: Home Past Medical History - Provider Review Nursing Documentation Reviewed: Yes - Infectious Disease Hx of Infectious Diseases: None - Cardiac Hx Cardiac Disorders: Yes Hx Hypertension: Yes Other/Comment: pt denies mi and cabg - Pulmonary Hx Respiratory Disorders: Yes Hx Sleep Apnea: Yes (dx 2011) Other/Comment: pt has home cpap and is waiting for new machine needed upgrade - Neurological Hx Neurological Disorder: No - HEENT Hx HEENT Disorder: Yes (eyeglasses) - Renal Hx Renal Disorder: No - Endocrine/Metabolic Hx Endocrine Disorders: Yes Hx Diabetes Mellitus Type 2: Yes - Hematological/Oncological Hx Blood Disorders: Yes Hx Anemia: Yes - Integumentary Hx Dermatological Disorder: No - Musculoskeletal/Rheumatological Hx Falls: No - Gastrointestinal Hx Gastrointestinal Disorders: Yes Other/Comment: Gallstones removed, had umbilical and left inguinal hernia sx, c sections x 2 - Genitourinary/Gynecological Other/Comment: 2 separate uterine fibroids surgeries pt had 11 fibroids removed, now has 3 more - Psychiatric Hx Psychophysiologic Disorder: No Hx Substance Use: No - Surgical History Hx Cholecystectomy: (gallstones removed not gallbladder) Other/Comment: fibroid sx x2 total 11 fibroids removed, c section x 2 - Anesthesia Hx Anesthesia: Yes Hx Anesthesia Reactions: No Hx Malignant Hyperthermia: No Family/Social History - Physician Review Nursing Documentation Reviewed: Yes Family/Social History: Unknown Family HX Smoking Status: Never Smoked Hx Alcohol Use: No Hx Substance Use: No Allergies/Home Meds Allergies/Adverse Reactions: Allergies No Known Allergies Allergy (Verified 08/24/18 22:16) Home Medications: Home Meds Medication Instructions Recorded Confirmed Enalapril Maleate [Vasotec] 20 mg PO BID 08/19/16 08/24/18 Metoprolol Succinate XL [Toprol XL] 25 mg PO DAILY 08/19/16 08/24/18 Insulin Lispro Mix 75/25 [HumaLOG 50 unit SC BID 02/18/17 08/24/18 Mix 75/25] Review of Systems - Physician Review All systems were reviewed & negative as marked: Yes - Review of Systems Constitutional: Normal Eyes: Normal ENT: Normal Respiratory: Normal. absent: SOB, Cough Cardiovascular: Normal. absent: Chest Pain Gastrointestinal: Abdominal Pain, Diarrhea, Nausea, Vomiting Genitourinary Female: Normal. absent: Dysuria, Frequency Musculoskeletal: Normal. absent: Back Pain, Neck Pain Skin: Normal. absent: Rash Neurological: Normal. absent: Headache, Dizziness Endocrine: Normal Hemo/Lymphatic: Normal Psychiatric: Normal Physical Exam Vital Signs Reviewed: Yes Vital Signs Pulse Resp BP Pulse Ox 08/24/18 22:36 172/95 H 08/24/18 22:32 89 16 98 Blood Pressure: Hypertensive Pulse: Regular Respiratory Rate: Normal Appearance: Positive for: Well-Appearing, Non-Toxic, Comfortable Pain Distress: None Mental Status: Positive for: Alert and Oriented X 3 - Systems Exam Head: Present: Atraumatic, Normocephalic Pupils: Present: PERRL Extroacular Muscles: Present: EOMI Conjunctiva: Present: Normal Mouth: Present: Moist Mucous Membranes Neck: Present: Normal Range of Motion Respiratory/Chest: Present: Clear to Auscultation, Good Air Exchange. No: Respiratory Distress, Accessory Muscle Use Cardiovascular: Present: Regular Rate and Rhythm, Normal S1, S2. No: Murmurs Abdomen: Present: Tenderness (epigastrium tenderness and suprapubic region). No: Distention, Peritoneal Signs Back: Present: Normal Inspection Upper Extremity: Present: Normal Inspection. No: Cyanosis, Edema Lower Extremity: Present: Normal Inspection. No: Edema Neurological: Present: GCS=15, CN II-XII Intact, Speech Normal Skin: Present: Warm, Dry, Normal Color. No: Rashes Psychiatric: Present: Alert, Oriented x 3, Normal Insight, Normal Concentration Medical Decision Making ED Course and Treatment: 08/24/18 22:50 Impression: 53 year old female presents to the emergency department complaining of abdominal pain today. Plan: -- Labs -- CXR -- Maalox -- Elixir -- Pepcid -- Toradol -- Sodium Chloride -- Urine Culture -- UA -- Reassess and disposition Progress Notes: 08/25/18 00:03 Labs reviewed with no evidence of leukocytosis or elevated lipase. Pending troponin. 08/25/18 03:42 Troponin negative. Patient reassssed and feels better. She will follow up with GI and her PCP. She is stable for discharge. - RAD Interpretation Radiology Orders: 08/24/18 22:30 CHEST PORTABLE [RAD] Stat - Medication Orders Current Medication Orders: Al Hydrox/Mg Hydrox/Simethicone (Maalox Plus 30 Ml) 30 ml PO STAT STA Stop: 08/24/18 22:41 Belladonna/Phenobarbital ( Elixir) 5 ml PO STAT STA Stop: 08/24/18 22:41 Famotidine (Pepcid) 20 mg PO STAT STA Stop: 08/24/18 22:41 Sodium Chloride (Sodium Chloride 0.9%) 1,000 mls @ 999 mls/hr IV .Q1H1M STA Stop: 08/24/18 23:31 Ketorolac Tromethamine (Toradol) 15 mg IVP STAT STA Stop: 08/24/18 22:41 - Scribe Statement The provider has reviewed the documentation as recorded by the Scribe Shelia Woody All medical record entries made by the Scribe were at my direction and personal ly dictated by me. I have reviewed the chart and agree that the record accurately reflects my personal performance of the history, physical exam, medical decision making, and the department course for this patient. I have also personally directed, reviewed, and agree with the discharge instructions and disposition. Disposition/Present on Arrival - Present on Arrival Any Indicators Present on Arrival: Yes History of DVT/PE: No History of Uncontrolled Diabetes: Yes Urinary Catheter: No History of Decub. Ulcer: No History Surgical Site Infection Following: None - Disposition Have Diagnosis and Disposition been Completed?: Yes Diagnosis: Gastritis Disposition: HOME/ ROUTINE Disposition Time: 03:00 Patient Plan: Discharge Condition: IMPROVED Discharge Instructions (ExitCare): Gastritis (DC) Print Language: BELARUSIAN Additional Instructions: All medical record entries made by the Scribe were at my direction and personally dictated by me. I have reviewed the chart and agree that the record accurately reflects my personal performance of the history, physical exam, medical decision making, and the department course for this patient. I have also personally directed, reviewed, and agree with the discharge instructions and disposition. Prescriptions: Famotidine [Pepcid] 40 mg PO DAILY #10 tablet Ondansetron ODT [Zofran ODT] 4 mg PO Q6 #6 odt Referrals: Boris Garcia MD [Primary Care Provider] - Follow up with primary Freddie Chacon MD [Staff Provider] - Follow up with primary Forms: [employer] (Slovak)
[2018-08-24] MEDS ORDERED: Metoprolol 1 mg/ml Inj IVP STA (22:50)
[2018-08-24 23:37] LABS: GRAN # 5.82 (1.4-6.5); GRAN % 84.6 % (50.0-68.0); HEMOGLOBIN 13.5 g/dL (12.0-16.0); LYMPH # 0.8 (1.2-3.4); LYMPH % 12.1 % (22.0-35.0); MEAN CELL VOLUME 91.2 fl (80.0-105.0); MEAN CORPUSCULAR HEMOGLOBIN 30.6 pg (25.0-35.0); MEAN CORPUSCULAR HGB CONC 33.6 g/dl (31.0-37.0); MONO # 0.2 (0.1-0.6); MONO % 3.3 % (1.0-6.0); RBC 4.41 10^6/uL (3.5-6.1); RED CELL DISTRIBUTION WIDTH 12.9 % (11.5-14.5); WHITE BLOOD COUNT 6.9 10^3/uL (4.5-11.0)
[2018-08-24 23:45] LABS: ALBUMIN 4.1 g/dL (3.0-4.8); ALT/SGPT 29 U/L (7-56); AST/SGOT 21 U/L (14-36); BLOOD UREA NITROGEN 13 mg/dL (7-21); CALCIUM 8.8 mg/dL (8.4-10.5); GFR NON-AFRICAN AMERICAN > 60; LIPASE 21 U/L (23-300)
[2018-08-24 23:57] LABS: INR 1.01; PARTIAL THROMBOPLASTIN TIME 29.4 Seconds (25.1-36.5); PROTHROMBIN TIME 11.5 SECONDS (9.4-12.5)
[2018-08-25 00:29] VITALS: O2SAT 96
[2018-08-25 01:14] LABS: URINE BILIRUBIN NEGATIVE (NEGATIVE); URINE BLOOD TRACE-LYSED (NEGATIVE); URINE GLUCOSE (UA) >=1000 mg/dL (NEGATIVE); URINE LEUKOCYTE ESTERASE NEGATIVE Leu/uL (NEGATIVE); URINE PROTEIN 100 mg/dL (<30 mg/dL); URINE UROBILINOGEN 0.2 E.U./dL (<1 E.U./dL)
[2018-08-25 01:15] LABS: URINE APPEARANCE CLEAR (CLEAR); URINE COLOR LIGHT YELLOW (YELLOW)
[2018-08-25 01:33] LABS: URINE BACTERIA MOD (NEG)
[2018-08-25 03:58] VITALS: BP 172/85; PULSE 73; RESP 20
--- NOTE | 2018-08-25 09:19 | RAD ---
HISTORY: abdominal pain COMPARISON: Chest x-ray performed 04/28/18 TECHNIQUE: Chest, one view. FINDINGS: Examination limited by habitus and hypoinflation. LUNGS: No focal consolidation. Please note that chest x-ray has limited sensitivity for the detection of pulmonary masses. PLEURA: No significant pleural effusion identified. No definite pneumothorax . CARDIOVASCULAR: Borderline cardiomegaly. No significant atherosclerotic calcification present. OSSEOUS STRUCTURES: Degenerative changes. VISUALIZED UPPER ABDOMEN: Unremarkable. OTHER FINDINGS: None. IMPRESSION: Mild pulmonary venous congestion versus vascular crowding due to hypoinflation. Borderline cardiomegaly.
--- NOTE | 2018-08-25 13:23 | CARD ---
APPROVED REPORT Date of service: 08/24/2018 EKG Measurement Heart [id number] <Conclusion> Normal sinus rhythm Normal Electrocardiogram
== END 2018-08-25 03:58 | disposition home or self-care (01) ==
LOC: ED 21:00
DX: K29.70 Gastritis, unspecified, without bleeding (principal); E11.9 Type 2 diabetes mellitus without complications; I10 Essential (primary) hypertension
CPT/HCPCS: 71045; 80053; 81001; 83690; 84484; 85025; 85610; 85730; 87086; 93005; 96374; 96375; 99285; J1885; J7030

== ENCOUNTER 2018-11-04 09:48 | Emergency (ER) | payer MEDICAID ==
[2018-11-04 10:31] VITALS: BMI 37.6
[2018-11-04 10:33] VITALS: TEMP 98.7; O2SAT 99
--- NOTE | 2018-11-04 10:34 | ED PDOC ---
Arrival/HPI - General Time Seen by Provider: 11/04/18 10:10 Historian: Patient - History of Present Illness Narrative History of Present Illness (Text): 11/04/18 10:30 53yo female with pmhx of hypertension, Diabetes who present with complaint of constant crampy epigastric pain with associated nausea, nonbloody/bilious vomiting x 3 and diarrhea x1 since this morning. She denies bloody diarrhea, fever, chills, urinary symptoms, chest pain, SOB, sick contact, travel, any other complaint. States she ate at home. Past Medical History - Provider Review Nursing Documentation Reviewed: Yes - Infectious Disease Hx of Infectious Diseases: None - Cardiac Hx Cardiac Disorders: Yes Hx Hypertension: Yes Other/Comment: pt denies mi and cabg - Pulmonary Hx Respiratory Disorders: Yes Hx Sleep Apnea: Yes (dx 2011) Other/Comment: pt has home cpap and is waiting for new machine needed upgrade - Neurological Hx Neurological Disorder: No - HEENT Hx HEENT Disorder: Yes (eyeglasses) - Renal Hx Renal Disorder: No - Endocrine/Metabolic Hx Endocrine Disorders: Yes Hx Diabetes Mellitus Type 2: Yes - Hematological/Oncological Hx Blood Disorders: Yes Hx Anemia: Yes - Integumentary Hx Dermatological Disorder: No - Musculoskeletal/Rheumatological Hx Falls: No - Gastrointestinal Hx Gastrointestinal Disorders: Yes Other/Comment: Gallstones removed, had umbilical and left inguinal hernia sx, c sections x 2 - Genitourinary/Gynecological Other/Comment: 2 separate uterine fibroids surgeries pt had 11 fibroids removed, now has 3 more - Psychiatric Hx Psychophysiologic Disorder: No Hx Substance Use: No - Surgical History Hx Cholecystectomy: (gallstones removed not gallbladder) Other/Comment: fibroid sx x2 total 11 fibroids removed, c section x 2 - Anesthesia Hx Anesthesia: Yes Hx Anesthesia Reactions: No Hx Malignant Hyperthermia: No Family/Social History - Physician Review Nursing Documentation Reviewed: Yes Family/Social History: Unknown Family HX Smoking Status: Never Smoked Hx Alcohol Use: No Hx Substance Use: No Allergies/Home Meds Allergies/Adverse Reactions: Allergies No Known Allergies Allergy (Verified 08/24/18 22:16) Home Medications: Home Meds Medication Instructions Recorded Confirmed Enalapril Maleate [Vasotec] 20 mg PO BID 08/19/16 08/24/18 Metoprolol Succinate XL [Toprol XL] 25 mg PO DAILY 08/19/16 08/24/18 Insulin Lispro Mix 75/25 [HumaLOG 50 unit SC BID 02/18/17 08/24/18 Mix 75/25] Review of Systems - Physician Review All systems were reviewed & negative as marked: Yes - Review of Systems Constitutional: Normal Eyes: Normal ENT: Normal Respiratory: Normal Cardiovascular: Normal Gastrointestinal: Abdominal Pain, Diarrhea, Nausea, Vomiting. absent: Constipation, Hematochezia, Hematemesis Genitourinary Female: Normal Musculoskeletal: Normal Skin: Normal Neurological: Normal Endocrine: Normal Hemo/Lymphatic: Normal Psychiatric: Normal Physical Exam Vital Signs Reviewed: Yes Temperature: Afebrile Blood Pressure: Normal Pulse: Regular Respiratory Rate: Normal Appearance: Positive for: Well-Appearing, Non-Toxic, Comfortable Pain Distress: None Mental Status: Positive for: Alert and Oriented X 3 Finger Stick Blood Glucose: 319 - Systems Exam Head: Present: Atraumatic, Normocephalic Pupils: Present: PERRL Extroacular Muscles: Present: EOMI Conjunctiva: Present: Normal Mouth: Present: Moist Mucous Membranes Neck: Present: Normal Range of Motion Respiratory/Chest: Present: Clear to Auscultation, Good Air Exchange. No: Respiratory Distress, Accessory Muscle Use Cardiovascular: Present: Regular Rate and Rhythm, Normal S1, S2. No: Murmurs Abdomen: Present: Tenderness (Epigastric tenderness), Normal Bowel Sounds, Guarding (Voluntary ), Other (Soft). No: Distention, Peritoneal Signs, Rebound, McBurney's Point Tender, Rovsing's Sign Present Back: Present: Normal Inspection Upper Extremity: Present: Normal Inspection. No: Cyanosis, Edema Lower Extremity: Present: Normal Inspection. No: Edema Neurological: Present: GCS=15, CN II-XII Intact, Speech Normal Skin: Present: Warm, Dry, Normal Color. No: Rashes Psychiatric: Present: Alert, Oriented x 3, Normal Insight, Normal Concentration Medical Decision Making ED Course and Treatment: 11/04/18 10:34 53yo female in ED for epigastric pain with associated N/V/D Labs 1L NS, Zofran, Pepcid EKG Will re evaluate 11/04/18 13:47 On re evaluation pt's pain improved with morphine and above medications. She was noted to tolerate PO challenge Leukocytosis was noted on the lab and abdominal CT was ordered. Abdominal/Plevic CT IMPRESSION: Findings suspicious for enteritis. Possible mild gastric wall thickening suggestive of gastritis. Otherwise no significant interval changes noted since the prior study. Pt have history of Gastritis. Result was DW the pt. she was DC home with pepcid, Zofran and tramadol. Advised to follow BRAT diet and f/u with her PMD. TRT Ed for any new or worsening symptoms - Medication Orders Current Medication Orders: Discontinued Medications Famotidine (Pepcid) 20 mg IVP STAT STA Stop: 11/04/18 10:26 Ondansetron HCl (Zofran Inj) 4 mg IVP STAT STA Stop: 11/04/18 10:26 Disposition/Present on Arrival - Present on Arrival Any Indicators Present on Arrival: No History of DVT/PE: No History of Uncontrolled Diabetes: Yes Urinary Catheter: No History Surgical Site Infection Following: None - Disposition Have Diagnosis and Disposition been Completed?: Yes Diagnosis: Gastroenteritis, Nausea vomiting and diarrhea, Gastritis Disposition: HOME/ ROUTINE Disposition Time: 13:25 Patient Plan: Discharge Patient Problems: Current Active Problems Problem Status Onset Gastritis Acute Gastroenteritis Acute Nausea vomiting and diarrhea Acute Condition: STABLE Discharge Instructions (ExitCare): Gastritis, Acute Abdomen (Belly Pain), Nausea and Vomiting, Adult Additional Instructions: Follow up with your Doctor Follow BLAND diet for 24hrs Return to ED for any new or worsening symptoms Prescriptions: Famotidine [Pepcid] 40 mg PO DAILY #15 tab Ondansetron ODT [Zofran ODT] 4 mg PO Q6 #7 odt traMADol [Ultram] 50 mg PO TID #6 tab Referrals: Mauricio Hurd DO [Staff Provider] - Follow up with primary
[2018-11-04 11:06] LABS: BASO # 0.01 K/mm3 (0.0-2.0); BASO % 0.1 % (0.0-3.0); EOS # 0.1 (0.0-0.7); EOS % 0.7 % (1.5-5.0); HEMOGLOBIN 13.8 g/dL (12.0-16.0); LYMPH # 1.4 (1.2-3.4); LYMPH % 9.1 % (22.0-35.0); MEAN CELL VOLUME 90.2 fl (80.0-105.0); MEAN CORPUSCULAR HEMOGLOBIN 30.2 pg (25.0-35.0); MEAN CORPUSCULAR HGB CONC 33.5 g/dl (31.0-37.0); MONO % 6.6 % (1.0-6.0); RBC 4.57 10^6/uL (3.5-6.1); WHITE BLOOD COUNT 14.9 10^3/uL (4.5-11.0)
[2018-11-04 11:09] LABS: URINE BILIRUBIN NEGATIVE (NEGATIVE); URINE BLOOD TRACE-INTACT (NEGATIVE); URINE GLUCOSE (UA) >=1000 mg/dL (NEGATIVE); URINE LEUKOCYTE ESTERASE NEGATIVE Leu/uL (NEGATIVE); URINE PROTEIN 100 mg/dL (<30 mg/dL); URINE UROBILINOGEN 0.2 E.U./dL (<1 E.U./dL)
[2018-11-04 11:12] LABS: URINE APPEARANCE CLEAR (CLEAR); URINE COLOR YELLOW (YELLOW)
[2018-11-04 11:12] LABS: INR 0.92; PROTHROMBIN TIME 10.4 SECONDS (9.4-12.5)
[2018-11-04 11:17] LABS: URINE BACTERIA TRACE /hpf; URINE RBC 0 - 2 /hpf (0-2); URINE WBC 0 - 2 /hpf (0-6)
[2018-11-04 11:22] LABS: ALB/GLOB RATIO 1.1 (1.1-1.8); ALBUMIN 4.3 g/dL (3.0-4.8); ALT/SGPT 24 U/L (7-56); AMYLASE 62 U/L (35-125); AST/SGOT 18 U/L (14-36); BLOOD UREA NITROGEN 11 mg/dL (7-21); CALCIUM 9.1 mg/dL (8.4-10.5); GFR NON-AFRICAN AMERICAN > 60; LIPASE 45 U/L (23-300)
[2018-11-04 11:30] LABS: TROPONIN I < 0.01 ng/mL
[2018-11-04] MEDS ORDERED: Iohexol 350 MG/100 ML VIAL ONE (11:30)
[2018-11-04] MEDS ORDERED: Sodium Chloride 0.9% 1,000 ML IV STA (11:55)
[2018-11-04] MEDS ORDERED: Insulin Regular 1 UNITS/0.01 ML ML IVP STA (11:56)
--- NOTE | 2018-11-04 12:09 | CT ---
Date of service: 11/04/2018 PROCEDURE: CT Abdomen and Pelvis with contrast HISTORY: abdominal pain COMPARISON: Comparison is made with the previous study dated 08/16/2017 TECHNIQUE: Contrast dose: 96 mL of Omnipaque 350 intravenously. Axial and reformatted coronal and sagittal CT images of the abdomen and pelvis were obtained after IV contrast administration. Radiation dose: Total exam DLP = 816.07 mGy-cm. This CT exam was performed using one or more of the following dose reduction techniques: Automated exposure control, adjustment of the mA and/or kV according to patient size, and/or use of iterative reconstruction technique. FINDINGS: LOWER THORAX: No evidence of acute pathology at the lung bases. No evidence of pleural effusion. LIVER: The liver is [id number] enlarged demonstrate slight heterogeneous enhancement without evidence of discrete mass lesion. GALLBLADDER AND BILE DUCTS: Status post cholecystectomy. PANCREAS: Unremarkable. No gross lesion or ductal dilatation. SPLEEN: Unremarkable. ADRENALS: Again noted is 1.2 centimeter enhancing nodule at the right adrenal gland. The left adrenal gland is grossly unremarkable. KIDNEYS AND URETERS: The kidneys enhance symmetrically without evidence of hydronephrosis. There is hypoechoic cyst at the mid to upper pole of the right kidney measures 0.9 centimeter in the transverse diameter. There is also hypoechoic cyst in the midpole of the left kidney measures 0.7 centimeter. The ureters are not dilated. VASCULATURE: Unremarkable. No aortic aneurysm. No aortic atherosclerotic calcification or mural plaque present. BOWEL: Mildly dilated small bowel loops demonstrate mild enhancing wall thickening suspicious for enteritis. The stomach is not distended and the possibility of gastritis is not totally excluded. No evidence of colitis noted in this exam. Scattered colonic diverticulosis are again noted without evidence of diverticulitis. APPENDIX: No evidence of appendicitis. PERITONEUM: Unremarkable. No free fluid. No free air. LYMPH NODES: Unremarkable. No enlarged lymph nodes. BLADDER: The urinary bladder is partially distended. REPRODUCTIVE: The uterus is again mildly enlarged contains foci of calcification consistent with calcified fibroids. BONES: No acute fracture. OTHER FINDINGS: Again noted are multiple fat containing ventral hernias mostly around the umbilicus. IMPRESSION: Findings suspicious for enteritis. Possible mild gastric wall thickening suggestive of gastritis. Otherwise no significant interval changes noted since the prior study.
[2018-11-04] MEDS ORDERED: Morphine 2 mg/ml ISec IVP STA (12:11)
[2018-11-04 13:52] VITALS: BP 187/104; PULSE 85; RESP 16
--- NOTE | 2018-11-04 22:43 | CARD ---
APPROVED REPORT Date of service: 11/04/2018 EKG Measurement Heart [id number] <Conclusion> Normal sinus rhythm Slow R wave progression V1-3 Otherwise Normal ECG
== END 2018-11-04 14:00 | disposition home or self-care (01) ==
LOC: ED 09:48
DX: K52.9 Noninfective gastroenteritis and colitis, unspecified (principal); K29.70 Gastritis, unspecified, without bleeding; R11.2 Nausea with vomiting, unspecified; R19.7 Diarrhea, unspecified; I10 Essential (primary) hypertension; E11.9 Type 2 diabetes mellitus without complications
CPT/HCPCS: 74177; 80053; 81001; 82150; 82550; 83615; 83690; 84484; 85025; 85610; 85730; 93005; 96361; 96374; 96375; 99284; J2270; J2405; J7030; Q9967

== ENCOUNTER 2018-11-16 19:25 | Observation (INO) | payer MEDICAID ==
[2018-11-16 20:47] LABS: BASO # 0.02 K/mm3 (0.0-2.0); BASO % 0.3 % (0.0-3.0); EOS # 0.2 (0.0-0.7); EOS % 2.6 % (1.5-5.0); HEMOGLOBIN 13.7 g/dL (12.0-16.0); LYMPH # 2.7 (1.2-3.4); LYMPH % 39.7 % (22.0-35.0); MEAN PLATELET VOLUME 9.7 fl (7.0-11.0); MONO # 0.3 (0.1-0.6); MONO % 4.7 % (1.0-6.0); RBC 4.56 10^6/uL (3.5-6.1); RED CELL DISTRIBUTION WIDTH 12.8 % (11.5-14.5); WHITE BLOOD COUNT 6.9 10^3/uL (4.5-11.0)
[2018-11-16 20:54] LABS: URINE APPEARANCE CLEAR (CLEAR); URINE BILIRUBIN NEGATIVE (NEGATIVE); URINE BLOOD TRACE-INTACT (NEGATIVE); URINE COLOR YELLOW (YELLOW); URINE GLUCOSE (UA) >=1000 mg/dL (NEGATIVE); URINE LEUKOCYTE ESTERASE NEGATIVE Leu/uL (NEGATIVE); URINE PROTEIN 100 mg/dL (<30 mg/dL); URINE UROBILINOGEN 0.2 E.U./dL (<1 E.U./dL)
[2018-11-16 20:55] LABS: INR 1.01; PARTIAL THROMBOPLASTIN TIME 35.1 Seconds (26.9-38.3); PROTHROMBIN TIME 11.2 SECONDS (9.4-12.5)
[2018-11-16 21:09] LABS: TROPONIN I < 0.01 ng/mL
[2018-11-16 21:14] LABS: URINE RBC 0 - 2 /hpf (0-2); URINE WBC 0 - 2 /hpf (0-6)
[2018-11-16 21:19] LABS: ALB/GLOB RATIO 1.2 (1.1-1.8); ALBUMIN 4.4 g/dL (3.0-4.8); ALT/SGPT 16 U/L (7-56); AST/SGOT 22 U/L (14-36); BLOOD UREA NITROGEN 11 mg/dL (7-21); CALCIUM 9.3 mg/dL (8.4-10.5); GFR NON-AFRICAN AMERICAN > 60
--- NOTE | 2018-11-16 21:45 | ED PDOC ---
Arrival/HPI - General Chief Complaint: Upper Extremity Problem/Injury Time Seen by Provider: 11/16/18 19:45 Historian: Patient - History of Present Illness Narrative History of Present Illness (Text): 11/16/18 21:43 53 y/o female with PMH of HTN, CAD, DM, HLD presents to the ED c/o left arm pain x 2 days. Today pt developed anterior left sided chest pain. Pain is worse with movement and patient states it may be muscle soreness secondary to sneezing too hard 2 days ago. Admits to associated SOB. Took alieve for the pain 2 days ago without relief. States she had a cardiac workup last year, unsure of the results or the name of her tree thinner. Does not take aspirin daily. States she is compliant with her medication and took her BP medication this morning. Denies fever, chills, cough, abdominal pain, N/V, lower back pain, headache, dizziness, vision changes, or any other associated symptoms. Past Medical History - Provider Review Nursing Documentation Reviewed: Yes - Infectious Disease Hx of Infectious Diseases: None - Reproductive Currently : Unknown - Cardiac Hx Cardiac Disorders: Yes Hx Hypertension: Yes Other/Comment: pt denies mi and cabg - Pulmonary Hx Respiratory Disorders: Yes Hx Sleep Apnea: Yes (dx 2011) Other/Comment: pt has home cpap and is waiting for new machine needed upgrade - Neurological Hx Neurological Disorder: No - HEENT Hx HEENT Disorder: Yes (eyeglasses) - Renal Hx Renal Disorder: No - Endocrine/Metabolic Hx Endocrine Disorders: Yes Hx Diabetes Mellitus Type 2: Yes - Hematological/Oncological Hx Blood Disorders: Yes Hx Anemia: Yes - Integumentary Hx Dermatological Disorder: No - Musculoskeletal/Rheumatological Hx Falls: No - Gastrointestinal Hx Gastrointestinal Disorders: Yes Other/Comment: Gallstones removed, had umbilical and left inguinal hernia sx, c sections x 2 - Genitourinary/Gynecological Other/Comment: 2 separate uterine fibroids surgeries pt had 11 fibroids removed, now has 3 more - Psychiatric Hx Psychophysiologic Disorder: No Hx Substance Use: No - Surgical History Hx Cholecystectomy: (gallstones removed not gallbladder) Other/Comment: fibroid sx x2 total 11 fibroids removed, c section x 2 - Anesthesia Hx Anesthesia: Yes Hx Anesthesia Reactions: No Hx Malignant Hyperthermia: No Family/Social History Family/Social History: No Known Family HX Smoking Status: Never Smoked Hx Alcohol Use: No Hx Substance Use: No Allergies/Home Meds Allergies/Adverse Reactions: Allergies No Known Allergies Allergy (Verified 11/16/18 19:42) Home Medications: Home Meds Medication Instructions Recorded Confirmed Metoprolol Succinate XL [Toprol XL] 25 mg PO DAILY 08/19/16 11/16/18 Insulin Lispro Mix 75/25 [HumaLOG 50 unit SC DAILY 02/18/17 11/16/18 Mix 75/25] Enalapril Maleate [Vasotec] 20 mg PO BID 11/16/18 11/16/18 amLODIPine [Norvasc] 5 mg PO DAILY 11/16/18 11/16/18 Physical Exam Vital Signs Reviewed: Yes Vital Signs Temp Pulse Resp BP Pulse Ox 11/16/18 21:25 98 F 74 18 147/94 H 98 11/16/18 20:14 81 18 165/96 H 100 11/16/18 19:42 98.3 F 80 18 162/103 H 97 Temperature: Afebrile Blood Pressure: Hypertensive Pulse: Regular Respiratory Rate: Normal Appearance: Positive for: Well-Appearing, Non-Toxic, Comfortable Pain Distress: None Mental Status: Positive for: Alert and Oriented X 3 - Systems Exam Head: Present: Atraumatic, Normocephalic Pupils: Present: PERRL Extroacular Muscles: Present: EOMI Conjunctiva: Present: Normal Mouth: Present: Moist Mucous Membranes Neck: Present: Normal Range of Motion, Paraspinal Tenderness (left sided) Respiratory/Chest: Present: Clear to Auscultation, Good Air Exchange. No: Respi ratory Distress, Accessory Muscle Use, Tender to Palpation Cardiovascular: Present: Regular Rate and Rhythm, Normal S1, S2, Peripheal Pulses Present Abdomen: Present: Normal Bowel Sounds. No: Tenderness, Distention, Peritoneal Signs, Rebound, Guarding Back: Present: Normal Inspection. No: CVA Tenderness Upper Extremity: Present: Normal Inspection, Normal ROM (pain with movement of left shoulder), NORMAL PULSES, Neurovascularly Intact, Capillary Refill < 2s. No: Cyanosis, Edema, Tenderness, Swelling, Temperature Abnormalties Lower Extremity: Present: Normal Inspection, NORMAL PULSES, Normal ROM, Neurovascularly Intact, Capillary Refill < 2 s. No: Edema, Temperature Abnormalties Neurological: Present: GCS=15, CN II-XII Intact, Speech Normal, Motor Func Grossly Intact, Normal Sensory Function, Gait Normal Skin: Present: Warm, Dry, Normal Color. No: Rashes Psychiatric: Present: Alert, Oriented x 3, Normal Insight, Normal Concentration, Normal Affect, Normal Mood Medical Decision Making ED Course and Treatment: Initial Plan: * CBC, CMP * Troponin * Coags * UA, culture * EKG * CXR * Tylenol Labs reviewed, unremarkable Troponin negative EKG shows NSR with non specific ST/T wave changes; similar to previous CXR shows no active disease Patient reports decreased pain with tylenol Vitals have improved since first encounter. Will admit for observation secondary to comorbidities of DM, HTN, HLD and left sided pain. 21:45 Patient accepted to hospitalist service for inpatient observation with diagnosis of chest pain. Patient made aware of change in disposition and is resting comfortably in stretcher with stable vital signs at this time. - Lab Interpretations Lab Results: PT 11.2 SECONDS (9.4-12.5) 11/16/18 20:30 INR 1.01 11/16/18 20:30 APTT 35.1 Seconds (26.9-38.3) 11/16/18 20:30 Troponin I < 0.01 ng/mL 11/16/18 20:30 Total Bilirubin 0.4 mg/dL (0.2-1.3) 11/16/18 20:30 AST 22 U/L (14-36) 11/16/18 20:30 ALT 16 U/L (7-56) 11/16/18 20:30 Alkaline Phosphatase 143 U/L (38-126) H 11/16/18 20:30 Total Protein 7.9 g/dL (5.8-8.3) 11/16/18 20:30 Albumin 4.4 g/dL (3.0-4.8) 11/16/18 20:30 Globulin 3.6 gm/dL 11/16/18 20:30 Albumin/Globulin Ratio 1.2 (1.1-1.8) 11/16/18 20:30 Urine Color Yellow (YELLOW) 11/16/18 20:48 Urine Appearance Clear (CLEAR) 11/16/18 20:48 Urine pH 6.0 (4.7-8.0) 11/16/18 20:48 Ur Specific [place] 1.020 (1.005-1.035) 11/16/18 20:48 Urine Protein 100 mg/dL (<30 mg/dL) H 11/16/18 20:48 Urine Glucose (UA) >=1000 mg/dL (NEGATIVE) 11/16/18 20:48 Urine Ketones Negative mg/dL (NEGATIVE) 11/16/18 20:48 Urine Blood Trace-intact (NEGATIVE) H 11/16/18 20:48 Urine Nitrate Negative (NEGATIVE) 11/16/18 20:48 Urine Bilirubin Negative (NEGATIVE) 11/16/18 20:48 Urine Urobilinogen 0.2 E.U./dL (<1 E.U./dL) 11/16/18 20:48 Ur Leukocyte Esterase Negative Abhay/uL (NEGATIVE) 11/16/18 20:48 Urine RBC 0 - 2 /hpf (0-2) 11/16/18 20:48 Urine WBC 0 - 2 /hpf (0-6) 11/16/18 20:48 Ur Epithelial Cells None /hpf (0-5) 11/16/18 20:48 11/16/18 20:30 11/16/18 20:30 Lab Results 11/16/18 20:48: Urine Color Yellow, Urine Appearance Clear, Urine pH 6.0, Ur Specific [place] 1.020, Urine Protein 100 H, Urine Glucose (UA) >=1000, Urine Ketones Negative, Urine Blood Trace-intact H, Urine Nitrate Negative, Urine Bilirubin Negative, Urine Urobilinogen 0.2, Ur Leukocyte Esterase Negative, Urine RBC 0 - 2, Urine WBC 0 - 2, Ur Epithelial Cells None 11/16/18 20:30: PT 11.2, INR 1.01, APTT 35.1 11/16/18 20:30: Sodium 140, Potassium 3.9, Chloride 105, Carbon Dioxide 27, Anion Gap 12, BUN 11, Creatinine 0.5 L, Est GFR ( Amer) > 60, Est GFR (Non-Af Amer) > 60, Random Glucose 223 H, Calcium 9.3, Magnesium 2.1, Total Bilirubin 0.4, AST 22, ALT 16, Alkaline Phosphatase 143 H, Lactate Dehydrogenase 491, Total Creatine Kinase 84, Troponin I < 0.01, Total Protein 7.9, Albumin 4.4, Globulin 3.6, Albumin/Globulin Ratio 1.2 11/16/18 20:30: WBC 6.9 D, RBC 4.56, Hgb 13.7, Hct 41.5, MCV 91.0, MCH 30.0, MCHC 33.0, RDW 12.8, Plt Count 350, MPV 9.7, Neut % (Auto) 52.7, Lymph % (Auto) 39.7 H, [place] % (Auto) 4.7, Eos % (Auto) 2.6, Baso % (Auto) 0.3, Lymph # (Auto) 2.7, [place] # (Auto) 0.3, Eos # (Auto) 0.2, Baso # (Auto) 0.02, Absolute Neuts (auto) 3.62 I have reviewed the lab results: Yes - RAD Interpretation Narrative RAD Interpretations (Text): CXR: No active disease Radiology Orders: 11/16/18 20:10 CHEST PORTABLE [RAD] Stat Veterinarian Laboratory Animal Care: Radiologist - EKG Interpretation EKG Interpretation (Text): Rate 83; NSR; Normal Intervals; No STEMI, Nonspecific ST/T wave changes Interpreted by ED Physician: Yes Type: 12 lead EKG Comparison: Similar to previous EKG - Medication Orders Current Medication Orders: Discontinued Medications Acetaminophen (Tylenol 325mg Tab) 650 mg PO STAT STA Stop: 11/16/18 20:12 Last Admin: 11/16/18 20:22 Dose: 650 mg MAR Pain/Vitals Document 11/16/18 20:22 LA (Rec: 11/16/18 20:22 LA [id number]) Pain Reassessment Is This A Pain ReAssessment? No Sleep Is patient sleeping during reassessment? No Presence of Pain Presence of Pain Yes Pain Scale Used Protocol: PSCALES Pain Scale Used Numeric Location Left, Right or Bilateral Left Pain Location Body Site Shoulder Intensity 5 Pain Behavior Guarding Aspirin (Aspirin) 325 mg PO STAT STA Stop: 11/16/18 20:10 Last Admin: 11/16/18 20:22 Dose: 325 mg Disposition/Present on Arrival - Present on Arrival Any Indicators Present on Arrival: Yes History of DVT/PE: No History of Uncontrolled Diabetes: Yes Urinary Catheter: No History of Decub. Ulcer: No History Surgical Site Infection Following: None - Disposition Have Diagnosis and Disposition been Completed?: Yes Diagnosis: Chest pain Disposition: HOSPITALIZED Disposition Time: 21:45 Patient Plan: Observation Patient Problems: Current Active Problems Problem Status Onset GERD (gastroesophageal reflux disease) Acute Muscle spasm of left shoulder area Acute Condition: GOOD
--- NOTE | 2018-11-16 22:25 | CP.PCM.HP ---
<Catracho Ledezma - Last Filed: 11/17/18 00:03> History of Present Illness - History of Present Illness History of Present Illness: Medicine History and Physical for Hospitalist Service, Dr. Venkat Ledezma, DO PGY-1 This is a 53 y o female with PMhx HTN and DM2 who presents to the ED with L- sided posterior shoulder, arm and chest pain x 3 days. Pt states the pain started suddenly after she sneezed, states that she has been having URI-like symptoms for the past several days. States at its worst the pain was constant, 10/10, unrelenting with taking Aleve x1 at home. Describes it as sharp in quality. Admits to associated dyspnea on exertion that has improved now since being in the ED. Denies associated numbness/tingling to affected extremity. Also c/o acid-reflux like symptoms that have been recently bothering her, states she informed her PMD about her symptoms and he told her it was likely 2/2 to gastritis, not on any current medical therapy. Reports 2 episodes of vomiting today, but has been able to tolerate PO diet. Denies hx of endoscopy in past. Denies any associated headache, vision changes, d/c, urinary complaints, or other symptoms. PMhx: HTN, DM2 PSurgHx: 2 abdominal hernia repairs, C/s All: NKDA Home meds: Norvasc 5 mg daily, Toprol XL 25 mg daily, Insulin lispro mix 75/25 30 units in am and 25 units in pm, Enalapril 20 mg bid Fam hx: Father with DM, Mom with HTN Soc hx: denies smoking, EtOH or illicit drug use; works as business operations consultant for [employer]; lives at home with children and sister PMD: Dr. Boris Garcia Present on Admission - Present on Admission Any Indicators Present on Admission: Yes History of DVT/PE: No History of Uncontrolled Diabetes: Yes Urinary Catheter: No Decubitus Ulcer Present: No Review of Systems - Constitutional Constitutional: absent: Chills, Fever, Headache - EENT Eyes: absent: Change in Vision - Cardiovascular Cardiovascular: Chest Pain, Dyspnea on Exertion, Pain Radiating to Arm/Neck/Jaw. absent: Diaphoresis, Leg Edema, Palpitations - Respiratory Respiratory: Dyspnea on Exertion. absent: Cough, Wheezing, Pain on Inspiration, Chest Congestion - Gastrointestinal Gastrointestinal: Dyspepsia, Nausea, Vomiting. absent: Abdominal Pain, Bloating, Constipation, Diarrhea Past Patient History - Infectious Disease Hx of Infectious Diseases: None - Past Social History Smoking Status: Never Smoked - CARDIAC Hx Cardiac Disorders: Yes Hx Hypertension: Yes Other/Comment: pt denies mi and cabg - PULMONARY Hx Respiratory Disorders: Yes Hx Sleep Apnea: Yes (dx 2011) Other/Comment: pt has home cpap and is waiting for new machine needed upgrade - NEUROLOGICAL Hx Neurological Disorder: No - HEENT Hx HEENT Problems: Yes (eyeglasses) - RENAL Hx Chronic Kidney Disease: No - ENDOCRINE/METABOLIC Hx Endocrine Disorders: Yes Hx Diabetes Mellitus Type 2: Yes - HEMATOLOGICAL/ONCOLOGICAL Hx Blood Disorders: Yes Hx Anemia: Yes - INTEGUMENTARY Hx Dermatological Problems: No - MUSCULOSKELETAL/RHEUMATOLOGICAL Hx Falls: No - GASTROINTESTINAL Hx Gastrointestinal Disorders: Yes Other/Comment: Gallstones removed, had umbilical and left inguinal hernia sx, c sections x 2 - GENITOURINARY/GYNECOLOGICAL Other/Comment: 2 separate uterine fibroids surgeries pt had 11 fibroids removed, now has 3 more - PSYCHIATRIC Hx Psychophysiologic Disorder: No Hx Substance Use: No - SURGICAL HISTORY Hx Cholecystectomy: (gallstones removed not gallbladder) Other/Comment: fibroid sx x2 total 11 fibroids removed, c section x 2 - ANESTHESIA Hx Anesthesia: Yes Hx Anesthesia Reactions: No Hx Malignant Hyperthermia: No Meds Allergies/Adverse Reactions: Allergies Allergy/AdvReac Type Severity Reaction Status Date / Time No Known Allergies Allergy Verified 11/16/18 19:42 Physical Exam - Constitutional Appears: Non-toxic, No Acute Distress - Head Exam Head Exam: ATRAUMATIC, NORMOCEPHALIC - Eye Exam Eye Exam: EOMI, Normal appearance, PERRL - ENT Exam ENT Exam: Mucous Membranes Moist - Respiratory Exam Respiratory Exam: Clear to Auscultation Bilateral, NORMAL BREATHING PATTERN. absent: Rales, Rhonchi, Wheezes - Cardiovascular Exam Cardiovascular Exam: REGULAR RHYTHM, +S1, +S2. absent: Gallop, Rubs, Systolic Murmur Additional comments: Reproducible chest pain on palpation - GI/Abdominal Exam GI & Abdominal Exam: Normal Bowel Sounds, Soft, Tenderness. absent: Distended, Guarding, Organomegaly, Rebound, Rigid Additional comments: Mild tenderness to palpation in epigastric area - Extremities Exam Extremities exam: Positive for: normal capillary refill, normal inspection, pedal pulses present. Negative for: calf tenderness, pedal edema - Back Exam Back exam: FULL ROM, NORMAL INSPECTION. absent: paraspinal tenderness - Neurological Exam Neurological exam: Alert, CN II-XII Intact, Oriented x3, Reflexes Normal - Psychiatric Exam Psychiatric exam: Normal Affect, Normal Mood - Skin Skin Exam: Dry, Intact, Normal Color, Warm Results - Vital Signs Recent Vital Signs: Last Vital Signs Temp 98 F 11/16/18 21:25 Pulse 74 11/16/18 21:25 Resp 18 11/16/18 21:25 BP 147/94 H 11/16/18 21:25 Pulse Ox 98 11/16/18 21:25 - Labs Result Diagrams: 11/16/18 20:30 11/16/18 20:30 Labs: Laboratory Results - last 24 hr 11/16/18 11/16/18 11/16/18 20:30 20:30 20:30 WBC 6.9 D RBC 4.56 Hgb 13.7 Hct 41.5 MCV 91.0 MCH 30.0 MCHC 33.0 RDW 12.8 Plt Count 350 MPV 9.7 Neut % (Auto) 52.7 Lymph % (Auto) 39.7 H [place] % (Auto) 4.7 Eos % (Auto) 2.6 Baso % (Auto) 0.3 Lymph # (Auto) 2.7 [place] # (Auto) 0.3 Eos # (Auto) 0.2 Baso # (Auto) 0.02 Absolute Neuts (auto) 3.62 PT 11.2 INR 1.01 APTT 35.1 Sodium 140 Potassium 3.9 Chloride 105 Carbon Dioxide 27 Anion Gap 12 BUN 11 Creatinine 0.5 L Est GFR ( Amer) > 60 Est GFR (Non-Af Amer) > 60 Random Glucose 223 H Calcium 9.3 Magnesium 2.1 Total Bilirubin 0.4 AST 22 ALT 16 Alkaline Phosphatase 143 H Lactate Dehydrogenase 491 Total Creatine Kinase 84 Troponin I < 0.01 Total Protein 7.9 Albumin 4.4 Globulin 3.6 Albumin/Globulin Ratio 1.2 Urine Color Urine Appearance Urine pH Ur Specific [place] Urine Protein Urine Glucose (UA) Urine Ketones Urine Blood Urine Nitrate Urine Bilirubin Urine Urobilinogen Ur Leukocyte Esterase Urine RBC Urine WBC Ur Epithelial Cells 11/16/18 20:48 WBC RBC Hgb Hct MCV MCH MCHC RDW Plt Count MPV Neut % (Auto) Lymph % (Auto) [place] % (Auto) Eos % (Auto) Baso % (Auto) Lymph # (Auto) [place] # (Auto) Eos # (Auto) Baso # (Auto) Absolute Neuts (auto) PT INR APTT Sodium Potassium Chloride Carbon Dioxide Anion Gap BUN Creatinine Est GFR ( Amer) Est GFR (Non-Af Amer) Random Glucose Calcium Magnesium Total Bilirubin AST ALT Alkaline Phosphatase Lactate Dehydrogenase Total Creatine Kinase Troponin I Total Protein Albumin Globulin Albumin/Globulin Ratio Urine Color Yellow Urine Appearance Clear Urine pH 6.0 Ur Specific [place] 1.020 Urine Protein 100 H Urine Glucose (UA) >=1000 Urine Ketones Negative Urine Blood Trace-intact H Urine Nitrate Negative Urine Bilirubin Negative Urine Urobilinogen 0.2 Ur Leukocyte Esterase Negative Urine RBC 0 - 2 Urine WBC 0 - 2 Ur Epithelial Cells None Assessment & Plan - Assessment and Plan (Free Text) Assessment: This is a 53 y o female with PMhx HTN and DM2 who presents to the ED with L- sided posterior shoulder, arm and chest pain x 3 days. Admitted for chest pain, r/o ACS as etiology of symptoms. Plan: Chest pain r/o ACS -Admit to tele -Trop neg x1, repeat x2 pending -EKG NSR at 83 bpm, no acute St-t wave changes -Repeat EKG tomorrow am -CXR neg on admission -Cardio consulted (Dr. Earl), recs appreciated -Start ASA daily -Tylenol prn for pain -A1c, lipid panel pending Questionable hx gastritis, possibly GERD in etiology -Start Protonix daily, monitor for symptom improvement Hx HTN -BP elevated 147/94 on admission, may be 2/2 to pain -Cont to trend -C/w home meds Norvasc, Toprol XL, and Enalapril Hx DM2 -C/w home med Insulin Lispro mix 75/25, 30 units in am, 25 units in pm -ISS: med -Fingersticks achs -Hypoglycemic protocol -A1c pending PPX: Protonix/Heparin Pt seen, examined with, and plan discussed with Dr. Robledo, attending physician. Catracho Ledezma DO PGY-1, Scale Shooter Pager #[phone] <Esteban Robledo - Last Filed: 11/17/18 04:52> Results - Vital Signs Recent Vital Signs: Last Vital Signs Temp 98.1 F 11/17/18 00:00 Pulse 71 11/17/18 00:00 Resp 18 11/17/18 00:00 BP 137/74 11/17/18 00:00 Pulse Ox 96 11/16/18 23:34 - Labs Result Diagrams: 11/16/18 20:30 11/16/18 20:30 Labs: Laboratory Results - last 24 hr 11/16/18 11/16/18 11/16/18 20:30 20:30 20:30 WBC 6.9 D RBC 4.56 Hgb 13.7 Hct 41.5 MCV 91.0 MCH 30.0 MCHC 33.0 RDW 12.8 Plt Count 350 MPV 9.7 Neut % (Auto) 52.7 Lymph % (Auto) 39.7 H [place] % (Auto) 4.7 Eos % (Auto) 2.6 Baso % (Auto) 0.3 Lymph # (Auto) 2.7 [place] # (Auto) 0.3 Eos # (Auto) 0.2 Baso # (Auto) 0.02 Absolute Neuts (auto) 3.62 PT 11.2 INR 1.01 APTT 35.1 Sodium 140 Potassium 3.9 Chloride 105 Carbon Dioxide 27 Anion Gap 12 BUN 11 Creatinine 0.5 L Est GFR ( Amer) > 60 Est GFR (Non-Af Amer) > 60 Random Glucose 223 H Calcium 9.3 Magnesium 2.1 Total Bilirubin 0.4 AST 22 ALT 16 Alkaline Phosphatase 143 H Lactate Dehydrogenase 491 Total Creatine Kinase 84 Troponin I < 0.01 Total Protein 7.9 Albumin 4.4 Globulin 3.6 Albumin/Globulin Ratio 1.2 Urine Color Urine Appearance Urine pH Ur Specific [place] Urine Protein Urine Glucose (UA) Urine Ketones Urine Blood Urine Nitrate Urine Bilirubin Urine Urobilinogen Ur Leukocyte Esterase Urine RBC Urine WBC Ur Epithelial Cells 11/16/18 11/17/18 20:48 02:00 WBC RBC Hgb Hct MCV MCH MCHC RDW Plt Count MPV Neut % (Auto) Lymph % (Auto) [place] % (Auto) Eos % (Auto) Baso % (Auto) Lymph # (Auto) [place] # (Auto) Eos # (Auto) Baso # (Auto) Absolute Neuts (auto) PT INR APTT Sodium Potassium Chloride Carbon Dioxide Anion Gap BUN Creatinine Est GFR ( Amer) Est GFR (Non-Af Amer) Random Glucose Calcium Magnesium Total Bilirubin AST ALT Alkaline Phosphatase Lactate Dehydrogenase Total Creatine Kinase Troponin I < 0.01 Total Protein Albumin Globulin Albumin/Globulin Ratio Urine Color Yellow Urine Appearance Clear Urine pH 6.0 Ur Specific [place] 1.020 Urine Protein 100 H Urine Glucose (UA) >=1000 Urine Ketones Negative Urine Blood Trace-intact H Urine Nitrate Negative Urine Bilirubin Negative Urine Urobilinogen 0.2 Ur Leukocyte Esterase Negative Urine RBC 0 - 2 Urine WBC 0 - 2 Ur Epithelial Cells None Attending/Attestation - Attestation I have personally seen and examined this patient.: Yes I have fully participated in the care of the patient.: Yes I have reviewed all pertinent clinical information: Yes Notes (Text): 11/17/18 04:52 Patient was seen when she was in the ER. Agree with history , physical examination, assessment and plan.
[2018-11-16] MEDS ORDERED: Pantoprazole 40 mg EC Tab PO STA (22:43)
[2018-11-16] MEDS ORDERED: Dextrose 50% SYRINGE Inj (50 ml) IV PRN (22:46)
[2018-11-17 03:24] VITALS: BMI 37.4
[2018-11-17] MEDS ORDERED: Pantoprazole 40 mg EC Tab PO SCH (06:00)
[2018-11-17 06:56] VITALS: O2SAT 94
[2018-11-17 07:29] LABS: BASO # 0.02 K/mm3 (0.0-2.0); BASO % 0.3 % (0.0-3.0); EOS # 0.2 (0.0-0.7); EOS % 3.5 % (1.5-5.0); HEMOGLOBIN 12.8 g/dL (12.0-16.0); LYMPH # 2.9 (1.2-3.4); LYMPH % 46.1 % (22.0-35.0); MEAN CORPUSCULAR HEMOGLOBIN 29.5 pg (25.0-35.0); MEAN CORPUSCULAR HGB CONC 32.4 g/dl (31.0-37.0); MEAN PLATELET VOLUME 9.5 fl (7.0-11.0); MONO # 0.5 (0.1-0.6); MONO % 7.5 % (1.0-6.0); RBC 4.34 10^6/uL (3.5-6.1); RED CELL DISTRIBUTION WIDTH 12.8 % (11.5-14.5); WHITE BLOOD COUNT 6.4 10^3/uL (4.5-11.0)
[2018-11-17 07:58] LABS: ALB/GLOB RATIO 1.1 (1.1-1.8); ALBUMIN 4.1 g/dL (3.0-4.8); ALT/SGPT 16 U/L (7-56); AST/SGOT 21 U/L (14-36); BLOOD UREA NITROGEN 11 mg/dL (7-21); CALCIUM 9.1 mg/dL (8.4-10.5); GFR NON-AFRICAN AMERICAN > 60; HDL CHOLESTEROL 38 mg/dL (29-60)
[2018-11-17 08:09] LABS: LDL CHOLESTEROL 146 mg/dL (0-129)
[2018-11-17] MEDS: Insulin Lispro (humaLOG) MEDIUM Coverage SC SCH ×3 (08:33→17:22)
--- NOTE | 2018-11-17 08:40 | RAD ---
Date of service: 11/16/2018 HISTORY: chest pain COMPARISON: 08/25/2018 FINDINGS: LUNGS: No active pulmonary disease. PLEURA: No significant pleural effusion identified, no pneumothorax apparent. CARDIOVASCULAR: No aortic atherosclerotic calcification present. Normal cardiac size. No pulmonary vascular congestion. OSSEOUS STRUCTURES: No significant abnormalities. VISUALIZED UPPER ABDOMEN: Normal. OTHER FINDINGS: None. IMPRESSION: No active disease.
--- NOTE | 2018-11-17 09:59 | RAD ---
Date of service: 11/17/2018 PROCEDURE: Radiographs of the Left Shoulder HISTORY: shoulder pain COMPARISON: No prior. FINDINGS: BONES: Normal. No fracture. JOINTS: Normal. Glenohumeral and acromioclavicular joints preserved. No osteoarthritis. SOFT TISSUES: Normal. OTHER FINDINGS: None. IMPRESSION: Normal radiographs of the left shoulder.
[2018-11-17] MEDS ORDERED: Insulin Lispro (humaLOG) MIX 75/25(10 ml) SC SCH ×2 (10:00→18:00)
[2018-11-17] MEDS ORDERED: Metoprolol Succinate 25 mg XL Tab PO SCH (10:00)
[2018-11-17 15:45] VITALS: RESP 16
[2018-11-17 18:27] VITALS: BP 137/56; PULSE 68; TEMP 98.1
--- NOTE | 2018-11-17 18:55 | CON ---
DATE: 11/17/2018 REQUESTING PHYSICIAN: Ana Laura Bryan MD. REASON FOR CONSULTATION: Chest pain. HISTORY OF PRESENT ILLNESS: This is a 53-year-old woman with multiple cardiac risk factors who presented to the Emergency Room with complaints of chest pain. She describes her pain as in her left upper chest involving her shoulder and left arm. She describes it as a fairly sharp pain. She took an antiinflammatory agent with no relief. She also took aspirin and did not notice any improvement. She has no known coronary artery disease and reportedly underwent a stress test at [facility] (Formerly [facility]) within the past several months, which was unremarkable. The results of that test are unavailable at the time of her visit. She does have a history of diabetes and hypertension. PAST MEDICAL AND SURGICAL HISTORY: Notable for a prior cholecystectomy, left inguinal herniorrhaphy, umbilical hernia repair, and uterine fibroids. ALLERGIES: NONE. CURRENT MEDICATIONS: Include insulin, amlodipine 5 mg daily, and Toprol XL 25 mg daily. SOCIAL HISTORY: She does not smoke or drink. FAMILY HISTORY: Unremarkable for premature heart disease. REVIEW OF SYSTEMS: A 10-point review of systems is otherwise unremarkable. PHYSICAL EXAMINATION GENERAL: She is a middle aged woman who appears comfortable at rest. VITAL SIGNS: Her blood pressure is 134/60, pulse is 60 and sinus, respirations are 16. HEENT: Normocephalic and atraumatic. NECK: Supple. No JVD noted. CHEST: Clear to auscultation and percussion. HEART: PMI in normal position. No pathological gallops noted. ABDOMEN: Soft, obese, nontender with normoactive bowel sounds. EXTREMITIES: No edema. SKIN: Warm and dry. PSYCHIATRIC: Normal mood and affect. NEUROLOGIC: Alert and oriented x3. No gross motor or sensory deficits appreciable. DIAGNOSTIC DATA: Potassium is 4.0, BUN and creatinine 11 and 0.5. Three sets of cardiac enzymes are negative. White count is 6.4, hemoglobin and hematocrit of 12.8 and 39.5, platelet counts 353,000. Cholesterol is 230 with an HDL of 38 and LDL of 146, triglycerides are 169. Chest x-ray reveals normal cardiac silhouette with clear lung bryant. Electrocardiogram reveals sinus rhythm with poor R wave progression, but otherwise unremarkable. IMPRESSION: Chest and shoulder pain that appears more likely musculoskeletal in nature, doubt cardiac cause. Given the history of recent negative stress test and atypical symptoms, I do not feel that further workup is necessary because of time. She apparently has had multiple admissions in the past for her chest discomfort and she may eventually require cardiac catheterization to definitively answer the question of as to the presence of coronary artery disease or not. She does have significant risk factors and a progressive risk factor control is advised. She did state that her latest hemoglobin A1c was over 11%. This needs to be addressed aggressively. Thank you for the consultation. We would be happy to see her in the future as needed. Gualberto Burnett MD MTDD
--- NOTE | 2018-11-17 21:41 | CP.PCM.DIS ---
<CatrachoMakenna - Last Filed: 11/17/18 21:38> Provider - Provider Date of Admission: 11/16/18 21:50 Attending physician: Ana Laura Bryan MD Primary care physician: Boris Garcia MD Consults: 11/16/18 22:41 Cardiology Consult Routine Comment: Consulting Provider: Richie Earl Consulting Physician: Richie Earl Reason for Consult: Chest pain, hx HTN and DM2 11/17/18 03:24 Transition In Care/Readmission Reduction Routine Comment: Physician Instructions: Reason For Exam: protocol Time Spent in preparation of Discharge (in minutes): 45 Diagnosis - Discharge Diagnosis (1) Atypical chest pain Status: Resolved (2) Muscle spasm of left shoulder area Status: Resolved (3) GERD (gastroesophageal reflux disease) Status: Resolved Hospital Course - Lab Results Lab Results: Most Recent Lab Values WBC 6.4 10^3/uL (4.5-11.0) 11/17/18 07:00 RBC 4.34 10^6/uL (3.5-6.1) 11/17/18 07:00 Hgb 12.8 g/dL (12.0-16.0) 11/17/18 07:00 Hct 39.5 % (36.0-48.0) 11/17/18 07:00 MCV 91.0 fl (80.0-105.0) 11/17/18 07:00 MCH 29.5 pg (25.0-35.0) 11/17/18 07:00 MCHC 32.4 g/dl (31.0-37.0) 11/17/18 07:00 RDW 12.8 % (11.5-14.5) 11/17/18 07:00 Plt Count 353 10^3/uL (120.0-450.0) 11/17/18 07:00 MPV 9.5 fl (7.0-11.0) 11/17/18 07:00 Neut % (Auto) 42.6 % (50.0-68.0) L 11/17/18 07:00 Lymph % (Auto) 46.1 % (22.0-35.0) H 11/17/18 07:00 Riley % (Auto) 7.5 % (1.0-6.0) H 11/17/18 07:00 Eos % (Auto) 3.5 % (1.5-5.0) 11/17/18 07:00 Baso % (Auto) 0.3 % (0.0-3.0) 11/17/18 07:00 Lymph # (Auto) 2.9 (1.2-3.4) 11/17/18 07:00 Riley # (Auto) 0.5 (0.1-0.6) 11/17/18 07:00 Eos # (Auto) 0.2 (0.0-0.7) 11/17/18 07:00 Baso # (Auto) 0.02 K/mm3 (0.0-2.0) 11/17/18 07:00 Absolute Neuts (auto) 2.71 (1.4-6.5) 11/17/18 07:00 PT 11.2 SECONDS (9.4-12.5) 11/16/18 20:30 INR 1.01 11/16/18 20:30 APTT 35.1 Seconds (26.9-38.3) 11/16/18 20:30 Sodium 139 mmol/L (132-148) 11/17/18 07:00 Potassium 4.0 mmol/L (3.6-5.0) 11/17/18 07:00 Chloride 104 mmol/L (98-107) 11/17/18 07:00 Carbon Dioxide 27 mmol/L (21-33) 11/17/18 07:00 Anion Gap 12 (10-20) 11/17/18 07:00 BUN 11 mg/dL (7-21) 11/17/18 07:00 Creatinine 0.5 mg/dl (0.7-1.2) L 11/17/18 07:00 Est GFR ( Amer) > 60 11/17/18 07:00 Est GFR (Non-Af Amer) > 60 11/17/18 07:00 POC Glucose (mg/dL) 68 mg/dL (65-110) 11/16/18 22:43 Random Glucose 175 mg/dL (70-110) H 11/17/18 07:00 Calcium 9.1 mg/dL (8.4-10.5) 11/17/18 07:00 Phosphorus 4.2 mg/dL (2.5-4.5) 11/17/18 07:00 Magnesium 2.1 mg/dL (1.7-2.2) 11/17/18 07:00 Total Bilirubin 0.4 mg/dL (0.2-1.3) 11/17/18 07:00 AST 21 U/L (14-36) 11/17/18 07:00 ALT 16 U/L (7-56) 11/17/18 07:00 Alkaline Phosphatase 143 U/L (38-126) H 11/17/18 07:00 Lactate Dehydrogenase 491 U/L (333-699) 11/16/18 20:30 Total Creatine Kinase 84 U/L (35-230) 11/16/18 20:30 Troponin I < 0.01 ng/mL 11/17/18 07:00 Total Protein 7.8 g/dL (5.8-8.3) 11/17/18 07:00 Albumin 4.1 g/dL (3.0-4.8) 11/17/18 07:00 Globulin 3.7 gm/dL 11/17/18 07:00 Albumin/Globulin Ratio 1.1 (1.1-1.8) 11/17/18 07:00 Triglycerides 169 mg/dL (35-160) H 11/17/18 07:00 Cholesterol 230 mg/dL (130-200) H 11/17/18 07:00 LDL Cholesterol Direct 146 mg/dL (0-129) H 11/17/18 07:00 HDL Cholesterol 38 mg/dL (29-60) 11/17/18 07:00 Urine Color Yellow (YELLOW) 11/16/18 20:48 Urine Appearance Clear (CLEAR) 11/16/18 20:48 Urine pH 6.0 (4.7-8.0) 11/16/18 20:48 Ur Specific [place] 1.020 (1.005-1.035) 11/16/18 20:48 Urine Protein 100 mg/dL (<30 mg/dL) H 11/16/18 20:48 Urine Glucose (UA) >=1000 mg/dL (NEGATIVE) 11/16/18 20:48 Urine Ketones Negative mg/dL (NEGATIVE) 11/16/18 20:48 Urine Blood Trace-intact (NEGATIVE) H 11/16/18 20:48 Urine Nitrate Negative (NEGATIVE) 11/16/18 20:48 Urine Bilirubin Negative (NEGATIVE) 11/16/18 20:48 Urine Urobilinogen 0.2 E.U./dL (<1 E.U./dL) 11/16/18 20:48 Ur Leukocyte Esterase Negative Abhay/uL (NEGATIVE) 11/16/18 20:48 Urine RBC 0 - 2 /hpf (0-2) 11/16/18 20:48 Urine WBC 0 - 2 /hpf (0-6) 11/16/18 20:48 Ur Epithelial Cells None /hpf (0-5) 11/16/18 20:48 - Hospital Course Hospital Course: Upon Admission: 53 y o female with PMhx HTN and DM2 who presents to the ED with L-sided posterior shoulder, arm and chest pain x 3 days. Pt states the pain started suddenly after she sneezed, states that she has been having URI-like symptoms for the past several days. States at its worst the pain was constant, 10/10, unrelenting with taking Aleve x1 at home. Describes it as sharp in quality. Admits to associated dyspnea on exertion that has improved now since being in [facility] ED. Denies associated numbness/tingling to affected extremity. Also c/o acid- reflux like symptoms that have been recently bothering her, states she informed her PMD about her symptoms and he told her it was likely 2/2 to gastritis, not on any current medical therapy. Reports 2 episodes of vomiting today, but has been able to tolerate PO diet. Denies hx of endoscopy in past. Denies any associated headache, vision changes, d/c, urinary complaints, or other symptoms. Hospital Course: EKG revealed no acute ST/T waves changes. Troponins were negative x 3. CXR is negative. cardiology evaluated patient. L shoulder xray was negative. Pts symptoms had improved after administration of analgesics and muscle relaxants. Upon Discharge: Pt is feeling much better. Vital signs are stable. Pt instructed on medication compliance, outpatient follow and to return to ED if new symptoms present. Discharge Exam - Head Exam Head Exam: ATRAUMATIC, NORMOCEPHALIC - Eye Exam Eye Exam: EOMI, Normal appearance - ENT Exam ENT Exam: Mucous Membranes Moist, Normal Exam - Neck Exam Neck exam: Normal Inspection - Respiratory Exam Respiratory Exam: NORMAL BREATHING PATTERN, UNREMARKABLE - Cardiovascular Exam Cardiovascular Exam: REGULAR RHYTHM, +S1, +S2 - GI/Abdominal Exam GI & Abdominal Exam: Normal Bowel Sounds, Unremarkable - Extremities Exam Extremities exam: normal inspection - Back Exam Back exam: NORMAL INSPECTION - Neurological Exam Neurological exam: Alert, Oriented x3 - Psychiatric Exam Psychiatric exam: Normal Affect, Normal Mood - Skin Skin Exam: Dry, Intact, Warm Discharge Plan - Discharge Medications Prescriptions: Cyclobenzaprine [Flexeril] 5 mg PO TID PRN #14 tab PRN Reason: Muscle Spasm Naproxen [Naprosyn] 500 mg PO BID #10 tablet Pantoprazole Sodium [Protonix] 40 mg PO DAILY #10 ect - Follow Up Plan Condition: STABLE Disposition: HOME/ ROUTINE Instructions: Muscle Spasms (DC), Acid Reflux (Gastroesophageal Reflux Disease) in Adults Additional Instructions: Please follow up with your primary care doctor, Dr. Garcia within 3-5 days of discharge Please resume the medications that you were taking previously. Please discuss these medications with your doctor Please START the following medications Cyclobenzaprine (Flexeril) 5mg. Please take three times a day for muscle spasms Naproxen (Naprosyn) 500mg. Please take twice a day Pantoprazole (Protonix) 40mg. Please take one tab daily. If your symptoms return, or you experience new symptoms, please return to the nearest emergency room. Referrals: Boris Garcia MD [Primary Care Provider] - <Ana Laura Bryan - Last Filed: 11/18/18 11:41> Provider - Provider Date of Admission: 11/16/18 21:50 Attending physician: Ana Laura Bryan MD Primary care physician: Boris Garcia MD Consults: 11/16/18 22:41 Cardiology Consult Routine Comment: Consulting Provider: Richie Earl Consulting Physician: Rihcie Earl Reason for Consult: Chest pain, hx HTN and DM2 11/17/18 03:24 Transition In Care/Readmission Reduction Routine Comment: Physician Instructions: Reason For Exam: protocol Hospital Course - Lab Results Lab Results: Most Recent Lab Values WBC 6.4 10^3/uL (4.5-11.0) 11/17/18 07:00 RBC 4.34 10^6/uL (3.5-6.1) 11/17/18 07:00 Hgb 12.8 g/dL (12.0-16.0) 11/17/18 07:00 Hct 39.5 % (36.0-48.0) 11/17/18 07:00 MCV 91.0 fl (80.0-105.0) 11/17/18 07:00 MCH 29.5 pg (25.0-35.0) 11/17/18 07:00 MCHC 32.4 g/dl (31.0-37.0) 11/17/18 07:00 RDW 12.8 % (11.5-14.5) 11/17/18 07:00 Plt Count 353 10^3/uL (120.0-450.0) 11/17/18 07:00 MPV 9.5 fl (7.0-11.0) 11/17/18 07:00 Neut % (Auto) 42.6 % (50.0-68.0) L 11/17/18 07:00 Lymph % (Auto) 46.1 % (22.0-35.0) H 11/17/18 07:00 Riley % (Auto) 7.5 % (1.0-6.0) H 11/17/18 07:00 Eos % (Auto) 3.5 % (1.5-5.0) 11/17/18 07:00 Baso % (Auto) 0.3 % (0.0-3.0) 11/17/18 07:00 Lymph # (Auto) 2.9 (1.2-3.4) 11/17/18 07:00 Riley # (Auto) 0.5 (0.1-0.6) 11/17/18 07:00 Eos # (Auto) 0.2 (0.0-0.7) 11/17/18 07:00 Baso # (Auto) 0.02 K/mm3 (0.0-2.0) 11/17/18 07:00 Absolute Neuts (auto) 2.71 (1.4-6.5) 11/17/18 07:00 PT 11.2 SECONDS (9.4-12.5) 11/16/18 20:30 INR 1.01 11/16/18 20:30 APTT 35.1 Seconds (26.9-38.3) 11/16/18 20:30 Sodium 139 mmol/L (132-148) 11/17/18 07:00 Potassium 4.0 mmol/L (3.6-5.0) 11/17/18 07:00 Chloride 104 mmol/L (98-107) 11/17/18 07:00 Carbon Dioxide 27 mmol/L (21-33) 11/17/18 07:00 Anion Gap 12 (10-20) 11/17/18 07:00 BUN 11 mg/dL (7-21) 11/17/18 07:00 Creatinine 0.5 mg/dl (0.7-1.2) L 11/17/18 07:00 Est GFR ( Amer) > 60 11/17/18 07:00 Est GFR (Non-Af Amer) > 60 11/17/18 07:00 POC Glucose (mg/dL) 68 mg/dL (65-110) 11/16/18 22:43 Random Glucose 175 mg/dL (70-110) H 11/17/18 07:00 Hemoglobin A1c 11.9 % (4.2-6.5) H 11/17/18 07:00 Calcium 9.1 mg/dL (8.4-10.5) 11/17/18 07:00 Phosphorus 4.2 mg/dL (2.5-4.5) 11/17/18 07:00 Magnesium 2.1 mg/dL (1.7-2.2) 11/17/18 07:00 Total Bilirubin 0.4 mg/dL (0.2-1.3) 11/17/18 07:00 AST 21 U/L (14-36) 11/17/18 07:00 ALT 16 U/L (7-56) 11/17/18 07:00 Alkaline Phosphatase 143 U/L (38-126) H 11/17/18 07:00 Lactate Dehydrogenase 491 U/L (333-699) 11/16/18 20:30 Total Creatine Kinase 84 U/L (35-230) 11/16/18 20:30 Troponin I < 0.01 ng/mL 11/17/18 07:00 Total Protein 7.8 g/dL (5.8-8.3) 11/17/18 07:00 Albumin 4.1 g/dL (3.0-4.8) 11/17/18 07:00 Globulin 3.7 gm/dL 11/17/18 07:00 Albumin/Globulin Ratio 1.1 (1.1-1.8) 11/17/18 07:00 Triglycerides 169 mg/dL (35-160) H 11/17/18 07:00 Cholesterol 230 mg/dL (130-200) H 11/17/18 07:00 LDL Cholesterol Direct 146 mg/dL (0-129) H 11/17/18 07:00 HDL Cholesterol 38 mg/dL (29-60) 11/17/18 07:00 Urine Color Yellow (YELLOW) 11/16/18 20:48 Urine Appearance Clear (CLEAR) 11/16/18 20:48 Urine pH 6.0 (4.7-8.0) 11/16/18 20:48 Ur Specific [place] 1.020 (1.005-1.035) 11/16/18 20:48 Urine Protein 100 mg/dL (<30 mg/dL) H 11/16/18 20:48 Urine Glucose (UA) >=1000 mg/dL (NEGATIVE) 11/16/18 20:48 Urine Ketones Negative mg/dL (NEGATIVE) 11/16/18 20:48 Urine Blood Trace-intact (NEGATIVE) H 11/16/18 20:48 Urine Nitrate Negative (NEGATIVE) 11/16/18 20:48 Urine Bilirubin Negative (NEGATIVE) 11/16/18 20:48 Urine Urobilinogen 0.2 E.U./dL (<1 E.U./dL) 11/16/18 20:48 Ur Leukocyte Esterase Negative Abhay/uL (NEGATIVE) 11/16/18 20:48 Urine RBC 0 - 2 /hpf (0-2) 11/16/18 20:48 Urine WBC 0 - 2 /hpf (0-6) 11/16/18 20:48 Ur Epithelial Cells None /hpf (0-5) 11/16/18 20:48 Attending/Attestation - Attestation I have personally seen and examined this patient.: Yes I have fully participated in the care of the patient.: Yes I have reviewed all pertinent clinical information, including history, physical exam and plan: Yes Notes (Text): 11/18/18 11:39 Attending note; Patient seen and examined with resident. Currently complaining of left-sided shoulder pain/muscular pain in the back. Denies any chest pain, shortness of breath, palpitation. denies any fevers, chills. Tolerating diet. Ambulating fine. Patient is a 53-year-old female with PMhx HTN and DM2 who presents to the ED with L-sided posterior shoulder, arm and chest pain x 3 days. Pt states the pain started suddenly after she sneezed, states that she has been having URI-like symptoms for the past several days. States at its worst the pain was constant, 10/10, unrelenting with taking Aleve x1 at home. 1. Chest pain/Musculoskeletal pain; got 1 dose of IV Toradol. Continue Flexeril. Warm compress ordered. Shoulder x-rays negative. Advised to continue Naprosyn and Flexeril for a few more days. Cardiac enzymes negative. EKG no acute changes. Case discussed with cardiology in detail. Patient will be discharged home. Follow-up with PMD Dr. Garcia. 11/18/18 11:41
--- NOTE | 2018-11-17 21:44 | CARD ---
APPROVED REPORT Date of service: 11/16/2018 EKG Measurement Heart [id number] <Conclusion> Normal sinus rhythm Leftward axis Anterolateral infarct, age undetermined Abnormal ECG
--- NOTE | 2018-11-18 00:09 | CARD ---
APPROVED REPORT Date of service: 11/17/2018 EKG Measurement Heart [id number] <Conclusion> Normal sinus rhythm Normal ECG
== END 2018-11-17 18:54 | disposition home or self-care (01) ==
LOC: ED 19:25 → ERH 21:50 → 2RNO 11-17
PROVIDERS: ADMIT Hospitalist; ATTEND Internal Medicine
DX: R07.89 Other chest pain (principal); E11.9 Type 2 diabetes mellitus without complications; E78.5 Hyperlipidemia, unspecified; G47.30 Sleep apnea, unspecified; I10 Essential (primary) hypertension; I25.10 Atherosclerotic heart disease of native coronary artery without angina pectoris; K21.9 Gastro-esophageal reflux disease without esophagitis; K29.70 Gastritis, unspecified, without bleeding; Z79.4 Long term (current) use of insulin
CPT/HCPCS: 36415; 71045; 73030; 80053; 80061; 81001; 82550; 82948; 83036; 83615; 83735; 84100; 84484; 85025; 85610; 85730; 93005; 96372; 96374; 99285; G0378; J1644; J1885